=== PATIENT | female | born 1950 | race Caucasian/White ===

== ENCOUNTER → 2017-10-11 | Outpatient (CLI) | payer MEDICARE, OTHER ==
--- NOTE | 2017-10-11 08:57 | RADIOLOGY REPORT (SQ) ---
EXAM DESCRIPTION: MRI LUMBAR SPINE WITHOUT COMPLETED DATE/TIME: 10/11/2017 8:35 am REASON FOR STUDY: DEGENERATIVE DISC DISEASE (M51.37) M51.37 OTHER INTERVERTEBRAL DISC DEGENERATION, LUMBOSACRAL R COMPARISON: None. TECHNIQUE: Sagittal and Axial imaging includes T1, T2, STIR and gradient echo sequences. Coronal T2/ HASTE imaging. LIMITATIONS: None. FINDINGS: VISUALIZED UPPER ABDOMEN: Limited evaluation. No acute or suspicious findings suggested. SEGMENTATION: No transitional anatomy. The lowest well-developed disc space is labeled L5-S1. ALIGNMENT: Anatomic. VERTEBRAE: Just under 40% height loss at the L1 level. There is upper endplate fracture line with as sociated marrow edema. Minimal retropulsion but no significant central canal narrowing at this level . Chronic appearing upper endplate depression at L5. BONE MARROW: As above. Marrow signal otherwise looks normal. DISC SIGNAL: Diminished signal and height at several levels. POSTERIOR ELEMENTS: No pars defect. Mild multilevel facet arthropathy. HARDWARE: None in the spine. CORD AND CONUS: Normal in size and signal intensity. Conus at the appropriate level. SOFT TISSUES: No aortic aneurysm seen. No bulky retroperitoneal adenopathy or mass. No paraspinal mas s or fluid. L1-L2: No significant spinal stenosis or exit foraminal stenosis. L2-L3: No significant spinal stenosis or exit foraminal stenosis. L3-L4: Mild disc bulge and mild facet overgrowth with slight central narrowing. L4-L5: Mild broad central protrusion indents the ventral thecal sac. Facet overgrowth with generally mild central canal narrowing. L5-S1: Tiny central annular fissure. Minimal protrusion. No impingement or stenosis. LOWER THORACIC: Incompletely imaged. No stenosis seen. SACRUM: Visualized upper sacrum intact. OTHER: No other significant findings. IMPRESSION: 1. Recent appearing L1 mild compression fracture as above. No significant retropulsion. 2. Spondylosis otherwise. No high-grade stenosis. TECHNICAL DOCUMENTATION: JOB ID: [id number] [employer]- All Rights Reserved Reading location - IP/workstation name: [email or web address]
== END ==
LOC: RAD 07:50
PROVIDERS: ATTEND Family Medicine
DX: M51.37 Other intervertebral disc degeneration, lumbosacral region (principal)
CPT/HCPCS: 72148

== ENCOUNTER → 2017-10-25 | Outpatient (CLI) | payer MEDICARE, OTHER ==
[~2017-10-25] MED LIST: ALBUTEROL SULFATE 0.083% NEB 2.5 MG/3 ML AMPUL NEB ONE
--- NOTE | 2017-10-25 10:44 | WOMENS IMAGING REPORT ---
EXAM DESCRIPTION: BONE DENSITY HIP/SPINE COMPLETED DATE/TIME: 10/25/2017 10:23 am REASON FOR STUDY: AGE-RELATED OSTEOPROSIS; M80.08XA M80.08XA AGE-REL OSTEOPOR W CURRENT PATH FRACTU RE, VERTEBRA( COMPARISON: None. TECHNIQUE: Dual-Energy X-ray Absorptiometry (DEXA) of the AP Spine and Hip. LIMITATIONS: None. FINDINGS: LUMBAR SPINE: The bone mineral density (BMD) measured from L1-L4 in the AP projection correlates with a T-score of -1.8, which is osteopenic as defined by the World Health Organization. HIP: The bone mineral density (BMD) measured in the left femoral neck at the hip correlates with a T-score of -2.9, which is osteoporotic as defined by the World Health Organization. IMPRESSION: 1. LUMBAR SPINE: Osteopenic 2. HIP: Osteoporotic COMMENT: The World Health Organization defines low BMD as follows: T-score: Normal: Greater than -1.0 Osteopenia: Between -1.0 and -2.5 Osteoporosis: Less than -2.5 without fractures Established osteoporosis: Less than -2.5 with fractures In general, you may wish to consider: Diagnosis Treatment Follow-up DEXA Normal BMD Prevention 2-3 years Osteopenia Prevention/Therapy 1-2 years Osteoporosis Therapy Yearly TECHNICAL DOCUMENTATION: JOB ID: [id number] [employer]- All Rights Reserved Reading location - IP/workstation name: [email or web address]
== END ==
LOC: WI 09:20
PROVIDERS: ATTEND Family Medicine
DX: M80.08XA Age-related osteoporosis with current pathological fracture, vertebra(e), initial encounter for fracture (principal)
CPT/HCPCS: 77080

== ENCOUNTER 2018-05-21 07:41 | Day surgery (SDC) | payer MEDICARE, OTHER ==
[~2018-05-21 07:41] MED LIST changes: -ALBUTEROL SULFATE 0.083% NEB 2.5 MG/3 ML AMPUL NEB ONE; +PROPOFOL INJ 200 MG/20 ML VIAL IV ONE
[2018-05-21 09:34] VITALS: BP 132/70
--- NOTE | 2018-05-21 14:52 | Operative Report ---
Operative Report DATE OF SURGERY: 05/21/18 Operative Report: The risks, benefits and alternatives of the procedure including the risk of bleeding, perforation requiring surgery are explained to the patient in detail and informed consent is obtained. Patient was taken back to the endoscopy suite and placed in the left, lateral decubital position. Timeout was called. Propofol medication is administered. Rectal examination is done which did not reveal any masses, tears or fissures. An Olympus videoscope is introduced into the patient's rectum. The scope was then carefully advanced all the way to the cecum. The cecum was identified by the usual anatomical landmarks including the ileocecal valve as well as the appendiceal office. Photodocumentation was obtained. The scope was then sequentially pulled back via the various segments of the colon including the ascending colon, hepatic flexure, transverse colon, splenic flexure, descending colon and finally into the rectosigmoid portions of the colon. Retroflexion maneuver is performed. PREOPERATIVE DIAGNOSIS: Personal history of polyp POSTOPERATIVE DIAGNOSIS: Colon polyps x2 in the hepatic flexure the removed via snare polypectomy. Diverticulosis without any evidence of diverticulitis at this point. Internal hemorrhoids OPERATION: Colonoscopy with snare polypectomy SURGEON: CONNIE HAMILTON ANESTHESIA: LMAC TISSUE REMOVED OR ALTERED: As noted above. COMPLICATIONS: None. ESTIMATED BLOOD LOSS: None. INTRAOPERATIVE FINDINGS: As noted above. PROCEDURE: Patient tolerated the procedure well. No immediate postprocedure complications are noted. Patient discharged in good condition. Discharge date 05/21/2018. Discharge diet: Regular. Discharge activity: Regular. 2-3-week follow-up to discuss findings 3-5-year surveillance colonoscopy. I will wait on pathology. Patient is instructed to call the office or proceed to the emergency room should there be any further problems or questions.
== END 2018-05-21 09:32 | disposition home or self-care (01) ==
LOC: END 07:41
PROVIDERS: ATTEND Internal Medicine Gastroenterology
DX: D12.6 Benign neoplasm of colon, unspecified (principal); K57.30 Diverticulosis of large intestine without perforation or abscess without bleeding; K64.8 Other hemorrhoids; D57.80 Other sickle-cell disorders without crisis; M19.90 Unspecified osteoarthritis, unspecified site; Z88.2 Allergy status to sulfonamides; Z88.6 Allergy status to analgesic agent; Z86.010 Personal history of colon polyps; K58.0 Irritable bowel syndrome with diarrhea; E78.5 Hyperlipidemia, unspecified; M79.7 Fibromyalgia; F17.210 Nicotine dependence, cigarettes, uncomplicated; Z79.899 Other long term (current) drug therapy; Z79.891 Long term (current) use of opiate analgesic; Z79.51 Long term (current) use of inhaled steroids
CPT/HCPCS: 45385; 88305 ×2; J2704; 811

== ENCOUNTER 2018-07-05 09:09 | Day surgery (SDC) | payer MEDICARE, OTHER ==
[2018-06-27 10:17] LABS: ABSOLUTE BASOPHILS # (AUTO) 0.1 10^3/uL (0.0-0.2); ABSOLUTE LYMPHOCYTES (AUTO) 2.2 10^3/uL (0.5-4.7); ABSOLUTE MONOCYTES (AUTO) 0.4 10^3/uL (0.1-1.4); ABSOLUTE NEUT (AUTO) 3.7 10^3/uL (1.7-8.2); BASOPHILS % (AUTO) 1.4 % (0-2); EOSINOPHILS % (AUTO) 0.5 % (0-6); HEMATOCRIT 44.7 % (36.0-47.0); HEMOGLOBIN 15.3 g/dL (12.0-15.5); LYMPHOCYTES % (AUTO) 34.3 % (13-45); MEAN CORPUSCULAR HEMOGLOBIN 32.8 pg (27.0-33.4); MEAN CORPUSCULAR HGB CONC 34.2 g/dL (32.0-36.0); MEAN CORPUSCULAR VOLUME 96 fl (80-97); MONOCYTES % (AUTO) 5.5 % (3-13); PLATELET COUNT 238 10^3/uL (150-450); RED BLOOD COUNT 4.66 10^6/uL (3.72-5.28); RED CELL DISTRIBUTION WIDTH 13.2 % (11.5-14.0); SEGMENTED NEUTROPHILS % (AUTO) 58.3 % (42-78); TOTAL CELLS COUNTED % (AUTO) 100 %; WHITE BLOOD COUNT 6.4 10^3/uL (4.0-10.5)
--- NOTE | 2018-06-27 10:20 | RADIOLOGY REPORT (SQ) ---
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 NUMBER OF VIEWS: Two view. TECHNIQUE: Frontal and lateral radiographic views of the chest acquired. LIMITATIONS: None. FINDINGS: LUNGS AND PLEURA: No opacities, masses or pneumothorax. No pleural effusion. Attenuated bl ood vessels and flattened colleen-diaphragms. MEDIASTINUM AND HILAR STRUCTURES: No masses. No contour abnormalities. HEART AND VASCULAR STRUCTURES: Heart normal in size and contour. No evidence for failure. BONES: No acute findings. HARDWARE: None in the chest. OTHER: No other significant finding. IMPRESSION: COPD. NO ACUTE RADIOGRAPHIC FINDING IN THE CHEST. TECHNICAL DOCUMENTATION: JOB ID: [id number] [employer]- All Rights Reserved Reading location - IP/workstation name: [email or web address]
[2018-06-27 10:35] LABS: ANION GAP 7 (5-19); BLOOD UREA NITROGEN 21 mg/dL (7-20); CALCIUM 9.4 mg/dL (8.4-10.2); CARBON DIOXIDE 29 mmol/L (22-30); CHLORIDE 103 mmol/L (98-107); GLUCOSE 91 mg/dL (75-110); POTASSIUM 5.2 mmol/L (3.6-5.0)
--- NOTE | 2018-06-27 17:56 | EKG REPORT ---
SEVERITY:- OTHERWISE NORMAL ECG - SINUS RHYTHM BORDERLINE LEFT AXIS DEVIATION LOW VOLTAGE IN FRONTAL LEADS : Confirmed by: Rj Hernandez 27-Jun-2018 17:55:13
[~2018-07-05 09:09] MED LIST changes: +LACTATED RINGERS 1000 ML IV PRN; +LIDOCAINE 0.5% INJ-PF (5 MG/ML) 50 ML SDV SUBCUT PRN; -PROPOFOL INJ 200 MG/20 ML VIAL IV ONE
[2018-07-05] MEDS ORDERED: MIDAZOLAM 2 MG/2 ML INJ ONE ×2 (10:56→12:32)
[2018-07-05] MEDS ORDERED: FENTANYL CITRATE INJ/PF 100 MCG/2 ML AMPUL ONE (12:32)
[2018-07-05] MEDS ORDERED: PROPOFOL INJ 200 MG/20 ML VIAL IV ONE (12:33)
[2018-07-05] MEDS ORDERED: MEPERIDINE HCL/PF INJ 25 MG/1 ML DISP.SYRIN IV PRN (12:55)
[2018-07-05] MEDS ORDERED: PROMETHAZINE HCL INJ 25 MG/1 ML VIAL IV PRN (12:55)
[2018-07-05] MEDS ORDERED: FENTANYL CITRATE INJ/PF 100 MCG/2 ML AMPUL IV PRN ×3 (12:55)
[2018-07-05] MEDS ORDERED: ONDANSETRON HCL INJ/PF 4 MG/2 ML SDV IV PRN (12:55)
[2018-07-05] MEDS ORDERED: DIPHENHYDRAMINE HCL 50 MG/ML VIAL IV PRN (12:55)
[2018-07-05] MEDS: FENTANYL CITRATE INJ/PF 100 MCG/2 ML AMPUL ONE ×2 (13:15→13:20)
[2018-07-05] MEDS ORDERED: KETOROLAC TROMETHAMINE INJ/PF 30 MG/1 ML SDV ONE (13:30)
--- NOTE | 2018-07-05 13:36 | Discharge Summary ---
Discharge Summary (SDC) - Discharge Final Diagnosis: bleeding internal hemorrhoids Date of Surgery: 07/05/18 Discharge Date: 07/05/18 Condition: Stable Treatment or Instructions: d/c home. diet as tolerated. Activity: nonstrenuous. F/u 3 weeks. Fiber supplement BID. 5% lidocaine to rectum TID. Sitz baths in warm, soapy water BID and after BM's. Referrals: GONZALO CARMONA MD [Primary Care Provider] - Discharge Diet: As Tolerated Respiratory Treatments at Home: Deep Breathing/Coughing, Incentive Spirometer Discharge Activity: Balance Activity w/Rest Home Care Assistance: None Needed Report the Following to Your Physician Immediately: Shortness of Breath, Nausea, Vomiting, Increase in Pain, Fever over 101 Degrees, Unusual Bleeding, Redness, Swelling, Warmth, Increased Soreness
[2018-07-05] MEDS ORDERED: LIDOCAINE 5% OINTMENT 35.44 GM TP SCH (14:00)
[2018-07-05 15:33] VITALS: BP 154/99
[2018-07-06] MEDS ORDERED: PROPOFOL INJ 200 MG/20 ML VIAL IV ONE (06:52)
--- NOTE | 2018-07-06 09:50 | Operative Report ---
Nonrecallable Operative Report DATE OF SURGERY: 07/05/18 PREOPERATIVE DIAGNOSIS: Bleeding internal hemorrhoids POSTOPERATIVE DIAGNOSIS: same OPERATION: Rubber band ligation of internal hemorrhoids x4 SURGEON: MARISOL CASIANO [employer] APPRENTICE: MORELIA ARCEO ANESTHESIA: LMAC TISSUE REMOVED OR ALTERED: none COMPLICATIONS: none apparent ESTIMATED BLOOD LOSS: minimal PROCEDURE: Procedure in detail: After informed consent was obtained, the patient was brought to the operating room and laid in the left lateral decubitus position. The anoscope was inserted into the rectum. Enlarged internal hemorrhoids were found in the right anterior, right posterior, and left lateral columns. Rubber bands were placed around the hemorrhoids inside the rectum. 2 rubber bands were placed in the left lateral position. 4 rubber bands were placed in total. After this was completed, the endoscope was removed, and the procedure was concluded. All sponge, instrument, needle counts were correct x2. Condition: Stable. Morelia Arceo PA-C was scrubbed and present the entirety of the procedure. She assisted with all portions of procedure including retraction, deployment of the rubber bands, placement of the dressing.
== END 2018-07-05 15:20 | disposition home or self-care (01) ==
LOC: OROUT 09:09
PROVIDERS: ATTEND Surgery
DX: K64.8 Other hemorrhoids (principal); K58.9 Irritable bowel syndrome, unspecified; M79.7 Fibromyalgia; J44.9 Chronic obstructive pulmonary disease, unspecified; E78.5 Hyperlipidemia, unspecified; F17.210 Nicotine dependence, cigarettes, uncomplicated; Z79.891 Long term (current) use of opiate analgesic; Z79.899 Other long term (current) drug therapy; Z88.2 Allergy status to sulfonamides; Z79.51 Long term (current) use of inhaled steroids
CPT/HCPCS: 93005; 36415 ×2; 84132; 85025; 80048; 71046; 93010; 94640; 46221; J2250; J3010; J3490; J1885; J2704; A9270; 902

== ENCOUNTER 2019-07-29 04:06 | Inpatient (IN) | payer MEDICARE ==
--- NOTE | 2019-07-29 04:12 | ER Document Report ---
ED Hip Pain/Injury - General Chief Complaint: Hip Pain Stated Complaint: INNER THIGH PAIN Time Seen by Provider: 07/29/19 04:11 Primary Care Provider: GONZALO CARMONA MD [Primary Care Provider] - Follow up as needed Notes: CHIEF COMPLAINT: Right hip pain status post fall HPI: 69-year-old female with history of fibromyalgia presenting for evaluation of right hip pain status post fall. Patient tripped and landed on the right hip. Denies hitting her head. States that she was not able to get up or weight-bear afterwards, EMS reports they did give 100 mcg fentanyl for pain. Patient denies knee pain or ankle pain. She states she cannot fully straighten her leg secondary to the discomfort. ROS: See HPI - all other systems were reviewed and are otherwise negative Constitutional: no fever Eyes: no drainage, no blurred vision ENT: no runny nose, no sore throat Cardiovascular: no chest pain Resp: no SOB, no cough GI: no vomiting, no diarrhea, no abdominal pain : no dysuria Integumentary: no rash Allergy: no hives Musculoskeletal: + extremity pain or swelling Neurological: no numbness/tingling MEDICATIONS: I agree with the patient medications as charted by the RN. ALLERGIES: I agree with the allergies as charted by the RN. PAST MEDICAL HISTORY/PAST SURGICAL HISTORY: Reviewed and agree as charted by RN. SOCIAL HISTORY: Reviewed and agree as charted by RN. FAMILY HISTORY: No significant familial comorbid conditions directly related to patient complaint EXAM: Reviewed vital signs as charted by RN. CONSTITUTIONAL: Alert and oriented and responds appropriately to questions. Well-appearing; well-nourished, mild acute distress secondary to pain HEAD: Normocephalic; atraumatic EYES: PERRL; Conjunctivae clear, sclerae non-icteric ENT: normal nose; no rhinorrhea; moist mucous membranes; pharynx without lesions noted, no uvula edema or deviation, no tonsillar hypertrophy, phonation normal NECK: Supple without meningismus; non-tender; no cervical lymphadenopathy, no masses CARD: RRR; no murmurs, no clicks, no rubs, no gallops; symmetric distal pulses RESP: Normal chest excursion without splinting or tachypnea; breath sounds clear and equal bilaterally; no wheezes, no rhonchi, no rales, pulse oximetry 97% on room air not hypoxic ABD/GI: Normal bowel sounds; non-distended; soft, non-tender, no rebound, no guarding; no palpable organomegaly or masses. BACK: The back appears normal and is non-tender to palpation, there is no CVA tenderness EXT: Patient is unable to straighten the right leg at the hip secondary to complaints of pain. She has moderate tenderness around the right hip girdle on palpation. No discomfort to the distal femur, knee, right lower extremity. Sensation is intact in the distal right lower extremity to touch with capillary refill less than 3 seconds. Dorsalis pedis and posterior tibial pulses are present in the right foot and ankle. SKIN: Normal color for age and race; warm; dry; good turgor; no acute lesions noted NEURO: Motor and sensory function intact PSYCH: The patient's mood and manner are appropriate. Grooming and personal hygiene are appropriate. MDM: 69-year-old female with a mechanical fall with probable right hip fracture will obtain x-ray TRAVEL OUTSIDE OF THE [place] IN LAST 30 DAYS: No - Related Data Allergies/Adverse Reactions: Sulfa (Sulfonamide Antibiotics) Allergy (Severe, Verified 06/27/18 09:08) Anaphylaxis aspirin Adverse Reaction (Severe, Verified 06/27/18 09:08) STOMACH UPSET Past Medical History - Social History Smoking Status: Unknown if Ever Smoked Family History: Reviewed & Not Pertinent - Past Medical History Cardiac Medical History: Denies: Hx Coronary Artery Disease, Hx Heart Attack, Hx Hypertension Pulmonary Medical History: Reports: Hx Asthma, Hx Bronchitis, Hx COPD, Hx Pneumonia Neurological Medical History: Denies: Hx Cerebrovascular Accident, Hx Seizures Musculoskeletal Medical History: Denies Hx Arthritis - Immunizations Hx Diphtheria, Pertussis, Tetanus Vaccination: Yes Physical Exam - Vital signs Vitals: Resp Pulse Ox 16 91 L 07/29/19 04:11 07/29/19 04:11 Course - Re-evaluation Re-evalutation: 07/29/19 04:58 Patient appears to have a femoral neck fracture on my review of her x-ray. Awaiting the official radiology review, will discuss with orthopedics for management 07/29/19 06:01 Patient with a right femoral neck fracture by radiologist, labs do not show acute emergent abnormalities, have paged Dr. Garnica orthopedics 07/29/19 06:[address] Garnica, Orthopedics. Case was discussed, they will admit to their service - Vital Signs Vital signs: Temp Pulse Resp BP Pulse Ox 15 147/73 H 94 07/29/19 05:01 07/29/19 05:01 07/29/19 05:01 - Laboratory Result Diagrams: 07/29/19 04:50 07/29/19 04:50 Laboratory results interpreted by me: 07/29/19 07/29/19 04:50 04:50 WBC 12.0 H Lymph % (Auto) 10.0 L Absolute Neuts (auto) 10.2 H Seg Neutrophils % 84.9 H Carbon Dioxide 31 H Est GFR (MDRD) Non-Af 57 L Discharge - Discharge Clinical Impression: Fall Qualifiers: Encounter type: initial encounter Qualified Code(s): W19.XXXA - Unspecified fall, initial encounter Femoral neck fracture Qualifiers: Encounter type: initial encounter Fracture type: closed Laterality: right Qualified Code(s): S72.001A - Fracture of unspecified part of neck of right femur, initial encounter for closed fracture Condition: Stable Disposition: ADMITTED INPATIENT Admitting Provider: Dr. Garnica, Orthopedics Unit Admitted: Surgical Floor Referrals: GONZALO CARMONA MD [Primary Care Provider] - Follow up as needed
[2019-07-29] MEDS ORDERED: FENTANYL CITRATE INJ/PF 100 MCG/2 ML AMPUL IV ONE (04:49)
[2019-07-29 05:25] LABS: ABSOLUTE LYMPHOCYTES (AUTO) 1.2 10^3/uL (0.5-4.7); ABSOLUTE MONOCYTES (AUTO) 0.5 10^3/uL (0.1-1.4); ABSOLUTE NEUT (AUTO) 10.2 10^3/uL (1.7-8.2); BASOPHILS % (AUTO) 0.4 % (0-2); EOSINOPHILS % (AUTO) 0.4 % (0-6); HEMATOCRIT 43.2 % (36.0-47.0); HEMOGLOBIN 14.5 g/dL (12.0-15.5); MEAN CORPUSCULAR HEMOGLOBIN 32.6 pg (27.0-33.4); MEAN CORPUSCULAR HGB CONC 33.6 g/dL (32.0-36.0); MEAN CORPUSCULAR VOLUME 97 fl (80-97); MONOCYTES % (AUTO) 4.3 % (3-13); PLATELET COUNT 257 10^3/uL (150-450); RED BLOOD COUNT 4.46 10^6/uL (3.72-5.28); RED CELL DISTRIBUTION WIDTH 13.6 % (11.5-14.0); SEGMENTED NEUTROPHILS % (AUTO) 84.9 % (42-78); TOTAL CELLS COUNTED % (AUTO) 100 %
--- NOTE | 2019-07-29 05:26 | RADIOLOGY REPORT (SQ) ---
EXAM: XR Right Hip With Pelvis When Performed, 2 Views EXAM DATE/TIME: 07/29/2019 4:43 AM CLINICAL HISTORY: The patient is 69 years old and is Female; fall; hip right pain TECHNIQUE: Two views of the right hip with pelvis when performed. COMPARISON: No relevant prior studies available. FINDINGS: BONES/JOINTS: The bilateral hip joints are well-maintained. No dislocation. There is an acute, minimally displaced fracture through the lateral aspect of the right femoral neck. No additional acute fractures visualized. SOFT TISSUES: No significant soft tissue abnormalities visualized. IMPRESSION: Acute, minimally displaced fracture through the lateral aspect of the right femoral neck.
--- NOTE | 2019-07-29 05:30 | RADIOLOGY REPORT (SQ) ---
CLINICAL HISTORY: hip fracture COMPARISON: None. TECHNIQUE: XR CHEST 2 VIEWS 07/29/2019 4:19 AM SIZE STAMPER FINDINGS: Cardiac silhouette is normal in size. Lungs are clear without consolidation, atelectasis, mass or edema. There is no pleural effusion. There is no pneumothorax. There are no acute osseous findings. IMPRESSION: Clear lungs.
[2019-07-29 05:34] LABS: INTERNATIONAL RATION (INR) 0.87; PROTHROMBIN TIME 11.9 SEC (11.4-15.4)
[2019-07-29 05:44] LABS: ANION GAP 5 (5-19); BLOOD UREA NITROGEN 20 mg/dL (7-20); CALCIUM 8.9 mg/dL (8.4-10.2); CARBON DIOXIDE 31 mmol/L (22-30); CHLORIDE 101 mmol/L (98-107); GLUCOSE 105 mg/dL (75-110); POTASSIUM 4.2 mmol/L (3.6-5.0)
[2019-07-29 05:59] LABS: APPEARANCE,URINE CLEAR; BILIRUBIN,URINE NEGATIVE (NEGATIVE); COLOR,URINE YELLOW; GLUCOSE, URINE NEGATIVE (NEGATIVE); KETONES,URINE NEGATIVE (NEGATIVE); LEUKOCYTE ESTERASE,URINE NEGATIVE (NEGATIVE); NITRITE,URINE NEGATIVE (NEGATIVE); PROTEIN,URINE NEGATIVE (NEGATIVE); URINE SPECIFIC GRAVITY 1.016; UROBILINOGEN,URINE NEGATIVE mg/dL (<2.0)
--- NOTE | 2019-07-29 06:06 | EKG REPORT ---
SEVERITY:- ABNORMAL ECG - SINUS RHYTHM BORDERLINE LEFT AXIS DEVIATION LOW VOLTAGE EKG : Confirmed by: Yakov Harvey MD 29-Jul-2019 06:05:21
[2019-07-29] MEDS ORDERED: NORMAL SALINE 1000 ML 1,000 ML IV ONE (06:18)
--- NOTE | 2019-07-29 07:05 | PDOC H&P ---
History of Present Illness Admission Date/PCP: 07/29/19 06:29 GONZALO CARMONA MD History of Present Illness: MICHELE PIERCE is a 69 year old female 69-year-old white female recently relocated from [facility] and a past medical history significant for osteoporosis who fell at home earlier today and sustained a right hip injury. She was unable to weight-bear. She is brought to the emergency room by EMS. In the emergency room x-rays indicated the presence of a displaced right femoral neck fracture. Orthopedics is consulted for fracture management. Past Medical History Cardiac Medical History: Denies: Coronary Artery Disease, Myocardial Infarction, Hypertension Pulmonary Medical History: Reports: Asthma, Bronchitis, Chronic Obstructive Pulmonary Disease (COPD), Pneumonia Neurological Medical History: Denies: Seizures Musculoskeltal Medical History: Denies: Arthritis Hematology: Denies: Anemia Past Surgical History Past Surgical History: Reports: None Social History Information Source: Patient, [facility] Records Smoking Status: Unknown if Ever Smoked Family History Family History: Reviewed & Not Pertinent Parental Family History Reviewed: No Children Family History Reviewed: No Sibling(s) Family History Reviewed.: No Medication/Allergy Home Medications: Albuterol Sulfate [Ventolin Hfa 8 gm Mdi (1 Mdi/ER Disp)] 2 puff IH ASDIR PRN 05/16/18 Cyclobenzaprine HCl [Flexeril 10 mg Tablet] 10 mg PO QHS 05/16/18 Gabapentin 600 mg PO TID 05/16/18 Nitroglycerin 0.4 mg SL ASDIR PRN 05/16/18 Tramadol HCl [Ultram] 50 mg PO TID 05/16/18 Fiber [Fiber Off] 1 each PO QID 06/27/18 Allergies/Adverse Reactions: Sulfa (Sulfonamide Antibiotics) Allergy (Severe, Verified 06/27/18 09:08) Anaphylaxis aspirin Adverse Reaction (Severe, Verified 06/27/18 09:08) STOMACH UPSET Review of Systems All systems: as per PMH Physical Exam Vital Signs: Temp Pulse Resp BP Pulse Ox 15 147/73 H 94 07/29/19 05:01 07/29/19 05:01 07/29/19 05:01 Intake & Output 07/27/19 07/28/19 07/29/19 06:59 06:59 06:59 Weight 63.9 kg Physical Exam: Moderately built middle-aged white female lying on ER gurney. in a chair next to her. Patient's in significant distress at this point. General appearance: PRESENT: severe distress, well-developed, well-nourished Head exam: PRESENT: normocephalic Respiratory exam: PRESENT: unlabored Cardiovascular exam: PRESENT: RRR Pulses: PRESENT: +1 pedal pulses bilateral Vascular exam: PRESENT: normal capillary refill GI/Abdominal exam: PRESENT: soft Rectal exam: PRESENT: deferred Extremities exam: PRESENT: other - Right lower extremity is actually rotated and shortened. Distally there is brisk capillary refill and the patient is able to flex and extend her great toe. Neurological exam: PRESENT: alert, awake, oriented to person, oriented to place, oriented to time, oriented to situation. ABSENT: motor sensory deficit Psychiatric exam: PRESENT: appropriate affect, normal mood. ABSENT: homicidal ideation, suicidal ideation Skin exam: PRESENT: dry, intact, warm. ABSENT: cyanosis, rash Results Laboratory Results: 07/29/19 04:50 07/29/19 04:50 07/29/19 07/29/19 07/29/19 04:50 04:50 05:35 WBC 12.0 H RBC 4.46 Hgb 14.5 Hct 43.2 MCV 97 MCH 32.6 MCHC 33.6 RDW 13.6 Plt Count 257 Seg Neutrophils % 84.9 H Sodium 137.4 Potassium 4.2 Chloride 101 Carbon Dioxide 31 H Anion Gap 5 BUN 20 Creatinine 0.96 Est GFR ( Amer) > 60 Glucose 105 Calcium 8.9 Urine Color YELLOW Urine Appearance CLEAR Urine pH 7.0 Ur Specific [place] 1.016 Urine Protein NEGATIVE Urine Glucose (UA) NEGATIVE Urine Ketones NEGATIVE Urine Blood NEGATIVE Urine Nitrite NEGATIVE Ur Leukocyte Esterase NEGATIVE Urine WBC (Auto) 1 Urine RBC (Auto) 15 Impressions: Hip/Pelvis X-Ray 07/29/19 00:00 IMPRESSION: Acute, minimally displaced fracture through the lateral aspect of the right femoral neck. Chest X-Ray 07/29/19 04:19 IMPRESSION: Clear lungs. Status: Imported from PACS Assessment & Plan - Diagnosis (1) Femoral neck fracture Qualifiers: Encounter type: initial encounter Fracture type: closed Laterality: right Qualified Code(s): S72.001A - Fracture of unspecified part of neck of right femur, initial encounter for closed fracture Is this a current diagnosis for this admission?: Yes Plan: Plan for right hip arthroplasty pending anesthesia clearance (2) Osteoporosis Is this a current diagnosis for this admission?: Yes Plan: Was documented with osteoporosis on a DEXA scan in 2018. She states that she was unable to tolerate osteoporosis medication (? bisphosphonate) but has been taking calcium vitamin D in the interim. Plan will be to to address her osteoporosis once we have dealt with the hip fracture. - Time Time Spent: 50 to 70 Minutes Anticipated discharge: Home with Homehealth Within: within 72 hours
[2019-07-29] MEDS ORDERED: RINGERS SOLUTION,LACTATED 1,000 ML IV PRN ×2 (08:43→17:23)
[2019-07-29] MEDS ORDERED: VANCOMYCIN HCL 1,000 MG in DEXTROSE 5%-WATER 250 ML IV PRN (08:44)
[2019-07-29] MEDS ORDERED: ONDANSETRON 4 MG TAB.RAPDIS PO PRN ×2 (08:44→17:23)
[2019-07-29] MEDS ORDERED: TRANEXAMIC ACID INJ/PF 1,000 MG/10 ML SDV IV PRN (08:45)
[2019-07-29] MEDS: MORPHINE SULFATE 10 MG/ML INJ IV PRN ×3 (09:35→14:17)
[2019-07-29] MEDS ORDERED: PROPOFOL INJ 200 MG/20 ML VIAL IV ONE (15:23)
[2019-07-29] MEDS ORDERED: MIDAZOLAM 2 MG/2 ML INJ ONE (15:23)
[2019-07-29] MEDS ORDERED: FENTANYL CITRATE INJ/PF 100 MCG/2 ML AMPUL ONE (15:23)
[2019-07-29] MEDS ORDERED: BUPIVACAINE INJ/PF LIPOSOME/PF 266 MG/20 ML SDV ONE (15:28)
[2019-07-29] MEDS ORDERED: ALBUTEROL SULFATE 0.083% NEB 2.5 MG/3 ML AMPUL NEB ONE (15:44)
[2019-07-29] MEDS ORDERED: TRANEXAMIC ACID INJ/PF 1,000 MG/10 ML SDV ONE (15:46)
[2019-07-29] MEDS ORDERED: CEFAZOLIN INJ 1 GM VIAL ONE (16:36)
[2019-07-29] MEDS ORDERED: PROMETHAZINE HCL INJ 25 MG/1 ML VIAL IV PRN ×2 (16:40)
[2019-07-29] MEDS ORDERED: DIPHENHYDRAMINE HCL 50 MG/ML VIAL IV PRN ×2 (16:40→17:23)
[2019-07-29] MEDS ORDERED: ONDANSETRON HCL INJ/PF 4 MG/2 ML SDV IV PRN ×2 (16:40→17:24)
[2019-07-29] MEDS ORDERED: OXYCODONE-ACETAMINOPHEN 5-325 MG TABLET PO PRN ×2 (16:40)
[2019-07-29] MEDS ORDERED: MEPERIDINE HCL/PF INJ 25 MG/1 ML DISP.SYRIN IV PRN (16:40)
[2019-07-29] MEDS ORDERED: FENTANYL CITRATE INJ/PF 100 MCG/2 ML AMPUL IV PRN ×3 (16:40)
[2019-07-29] MEDS ORDERED: MORPHINE SULFATE 10 MG/ML INJ IV PRN (17:23)
[2019-07-29] MEDS ORDERED: ALBUTEROL SULFATE HFA (90 MCG/PUFF) 8 GM MDI (1 MDI/ER DISP) IH PRN (17:23)
--- NOTE | 2019-07-29 17:23 | Operative Report ---
Operative Report DATE OF SURGERY: 07/29/19 PREOPERATIVE DIAGNOSIS: Right femoral neck fracture OPERATION: Right hip arthroplasty SURGEON: SAHARA FERRARA ANESTHESIA: Spinal TISSUE REMOVED OR ALTERED: Femoral head to pathology ESTIMATED BLOOD LOSS: 75 PROCEDURE: Implants used: Femur: [place] Accolade 2 stem, size 4 Acetabular shell: 52 mm hemispherical shell Liner: 86 mm flat cross-link polyethylene liner Head: 36 mm chrome cobalt head +5 neck The patient is placed in a left lateral decubitus position on the operating table. The right lower extremity and hindquarter is prepped and draped in a sterile fashion. A curvilinear incision was made over the greater trochanter a posterior approach the hip was taken. the femoral neck transected using an oscillating saw and the femoral head is removed using a corkscrew.. Attention was next turned to the acetabulum. Soft tissues cleared off the acetabulum using electrocautery. The acetabulum was then prepared using a series of hemispherical reamers until a 52 millimeters reamer is seated. Subsequently a 52 millimeters [place] titanium hemispherical shell is impacted into position and secured with one screw. A standard flat 36 millimeters cross- link liner is impacted into the shell. Attention was next turned to the femur. Access is gained to the femoral canal using a box osteotome to the piriformis fo ssa. The femur is then prepared using a series of broaches until a number 4 broach is seated. A trial reduction was now performed using a 36 millimeters head with +5 neck. Preoperative leg length was recreated and is excellent anterior posterior stability. A decision was made to proceed with the above construct. All trial implants were removed. The wound is irrigated with pulsed lavage. A number 4 stem is impacted into the femoral canal. A trial reduction was again performed with a 36 mm head and a +5 neck. Findings as previously. The hip was dislocated one last time and the final chrome-cobalt head is impacted onto the trunnion. The hip was reduced. Wound is copiously irrigated with pulsed lavage. Sent closed in layers using interrupted Vicryl followed by jessenia. A sterile dressing is applied and the patient's returned to recovery room in satisfactory patient.
[2019-07-29] MEDS ORDERED: MAG HYDROX/AL HYDROX/SIMETH SUSP 30 ML UDCUP PO PRN (17:24)
[2019-07-29] MEDS ORDERED: ZOLPIDEM TARTRATE 5 MG TABLET PO PRN (17:24)
[2019-07-29] MEDS: SENNOSIDES/DOCUSATE 8.6-50 MG 1 EACH TABLET PO SCH (18:48)
[2019-07-29] MEDS ORDERED: TRANEXAMIC ACID INJ/PF 1,000 MG/10 ML SDV IV ONE (19:00)
[2019-07-29] MEDS ORDERED: ALBUTEROL SULFATE HFA (90 MCG/PUFF) 200 PUFF/8.5 GM MDI IH PRN (20:07)
[2019-07-29] MEDS ORDERED: IPRATROPIUM/ALBUTEROL 0.5-2.5 MG/3 ML AMPUL NEB ONE (20:11)
[2019-07-29] MEDS: GABAPENTIN 300 MG CAPSULE PO SCH (21:05)
[2019-07-29] MEDS: IBUPROFEN 800 MG in NORMAL SALINE 250 ML IV SCH (21:05)
[2019-07-29] MEDS: OXYCODONE HCL SR 10 MG TABLET PO SCH (21:06)
[2019-07-29] MEDS ORDERED: ACETAMINOPHEN 1,000 MG/100 ML RTUPB IV ONE (23:23)
[2019-07-30] MEDS ORDERED: ACETAMINOPHEN 1,000 MG/100 ML RTUPB IV ONE (05:15)
[2019-07-30] MEDS ORDERED: VANCOMYCIN HCL 1,000 MG in DEXTROSE 5%-WATER 250 ML IV ONE (05:23)
[2019-07-30] MEDS: GABAPENTIN 300 MG CAPSULE PO SCH ×3 (05:59→21:45)
[2019-07-30] MEDS: PANTOPRAZOLE SODIUM 40 MG TABLET.DR PO SCH (05:59)
[2019-07-30] MEDS: IBUPROFEN 800 MG in NORMAL SALINE 250 ML IV SCH ×4 (05:59→22:05)
[2019-07-30] MEDS: OXYCODONE HCL IR 5 MG TABLET PO PRN ×2 (06:03→13:58)
[2019-07-30 06:06] LABS: HEMATOCRIT 38.9 % (36.0-47.0); HEMOGLOBIN 13.1 g/dL (12.0-15.5); MEAN CORPUSCULAR HEMOGLOBIN 32.8 pg (27.0-33.4); MEAN CORPUSCULAR HGB CONC 33.8 g/dL (32.0-36.0); MEAN CORPUSCULAR VOLUME 97 fl (80-97); PLATELET COUNT 170 10^3/uL (150-450); RED BLOOD COUNT 4.01 10^6/uL (3.72-5.28); RED CELL DISTRIBUTION WIDTH 13.5 % (11.5-14.0)
[2019-07-30 06:39] LABS: BLOOD UREA NITROGEN 13 mg/dL (7-20); CALCIUM 8.4 mg/dL (8.4-10.2); GLUCOSE 118 mg/dL (75-110); POTASSIUM 4.8 mmol/L (3.6-5.0)
[2019-07-30 06:45] LABS: CARBON DIOXIDE 30 mmol/L (22-30); CHLORIDE 103 mmol/L (98-107)
[2019-07-30 06:49] LABS: ANION GAP 3 (5-19)
--- NOTE | 2019-07-30 07:15 | PDOC PROGRESS REPORT ---
Subjective Progress Note for:: 07/30/19 Reason For Visit: FALL,FEMORAL NECK FRACTURE 69-year-old white female now postop day 1 status post right hip arthroplasty for femoral neck fracture. Patient is comfortable this morning but pain control yesterday was problematic. Patient was not seen by physical therapy yesterday because of the time of her arrival to the floor which was late Physical Exam Vital Signs: Temp Pulse Resp BP Pulse Ox 36.9 C 94 16 126/46 H 91 L 07/30/19 04:50 07/30/19 04:50 07/30/19 04:50 07/30/19 04:50 07/30/19 04:50 Intake & Output 07/29/19 07/30/19 07/31/19 06:59 06:59 06:59 Intake Total 5692 Output Total 4909 Balance 783 Weight 63.9 kg 66.1 kg Physical Exam: Patient is alert, oriented, and somewhat appropriate. Apprehension when I placed my hand on her leg without moving the leg results in bracing on the bed rails as well as a trapeze anticipation of pain. General appearance: PRESENT: no acute distress, mild distress Head exam: PRESENT: normocephalic Respiratory exam: PRESENT: unlabored Cardiovascular exam: PRESENT: RRR GI/Abdominal exam: PRESENT: soft Rectal exam: PRESENT: deferred Musculoskeletal exam: PRESENT: other - Right hip dressing clean dry and intact. Leg lengths are equal. Distal neurovascular examination is intact. Neurological exam: PRESENT: alert, awake, oriented to person, oriented to place, oriented to time, oriented to situation. ABSENT: motor sensory deficit Psychiatric exam: PRESENT: anxious Skin exam: PRESENT: dry, intact, warm. ABSENT: cyanosis, rash Results Laboratory Results: 07/30/19 05:50 07/30/19 05:50 07/30/19 07/30/19 05:50 05:50 WBC 9.0 RBC 4.01 Hgb 13.1 Hct 38.9 MCV 97 MCH 32.8 MCHC 33.8 RDW 13.5 Plt Count 170 Sodium 136.1 L Potassium 4.8 Chloride 103 Carbon Dioxide 30 Anion Gap 3 L BUN 13 Creatinine 0.86 Est GFR ( Amer) > 60 Glucose 118 H Calcium 8.4 Impressions: Hip/Pelvis X-Ray 07/29/19 00:00 IMPRESSION: Acute, minimally displaced fracture through the lateral aspect of the right femoral neck. Chest X-Ray 07/29/19 04:19 IMPRESSION: Clear lungs. Status: Imported from PACS Assessment & Plan - Diagnosis (1) Femoral neck fracture Qualifiers: Encounter type: initial encounter Fracture type: closed Laterality: right Qualified Code(s): S72.001A - Fracture of unspecified part of neck of right femur, initial encounter for closed fracture Is this a current diagnosis for this admission?: Yes Plan: Mobilize with physical therapy and a touchdown weightbearing restriction (2) Osteoporosis Is this a current diagnosis for this admission?: Yes - Time Time Spent with patient: 15-24 minutes Anticipated discharge: Home with Homehealth Within: Other
[2019-07-30] MEDS: ASPIRIN 81 MG TABLET, ENT COATED PO SCH (09:32)
[2019-07-30] MEDS: OXYCODONE HCL SR 10 MG TABLET PO SCH ×2 (09:32→21:45)
[2019-07-30] MEDS: SENNOSIDES/DOCUSATE 8.6-50 MG 1 EACH TABLET PO SCH ×3 (09:32→17:03)
[2019-07-30] MEDS: PRENATAL VITAMIN W DHA CAPSULE PO SCH (09:33)
[2019-07-30] MEDS: IPRATROPIUM/ALBUTEROL 0.5-2.5 MG/3 ML AMPUL NEB SCH ×2 (11:25→20:15)
--- NOTE | 2019-07-30 11:53 | RADIOLOGY REPORT (SQ) ---
EXAM DESCRIPTION: CHEST SINGLE VIEW COMPLETED DATE/TIME: 07/30/2019 11:27 am REASON FOR STUDY: sob COMPARISON: Chest films 07/29/2019, 06/27/2018 EXAM PARAMETERS: NUMBER OF VIEWS: One view. TECHNIQUE: Single frontal radiographic view of the chest acquired. RADIATION DOSE: NA LIMITATIONS: None. FINDINGS: LUNGS AND PLEURA: Lungs are hyperinflated and hyperlucent from obstructive disease. Question early or developing infiltrate at the right lung base. No pleural effusion or pneumothorax. MEDIASTINUM AND HILAR STRUCTURES: No masses. Contour normal. HEART AND VASCULAR STRUCTURES: Heart normal in size. Normal vasculature. BONES: No acute findings. HARDWARE: Multiple surgical clips in the left upper quadrant. OTHER: No other significant finding. IMPRESSION: Obstructive lung disease Question early or developing infiltrate at the right lung base TECHNICAL DOCUMENTATION: JOB ID: [id number] 2010 [employer]- All Rights Reserved Reading location - IP/workstation name: [email or web address]
[2019-07-30 13:23] LABS: ARTERIAL BLOOD BASE EXCESS 0.4 mmol/L; ARTERIAL BLOOD H2CO3 1.18 mmol/L (1.05-1.35); ARTERIAL BLOOD HCO3 24.8 mmol/L (20-24); ARTERIAL BLOOD O2 SATURATION 77.1 % (94-98); ARTERIAL BLOOD PCO2 39.3 mmHg (35-45); ARTERIAL BLOOD PH 7.42 (7.35-7.45)
[2019-07-30 13:42] LABS: ARTERIAL BLOOD FIO2 ROOM AIR; ARTERIAL BLOOD PO2 40.8 mmHg (80-100)
--- NOTE | 2019-07-30 16:08 | PDOC CONSULTATION ---
Consultation Consult Date: 07/30/19 Attending physician:: SAHARA FERRARA Provider Consulted: NÉSTOR GARCIA Consult reason:: Hypoxemia History of Present Illness Admission Date/PCP: 07/29/19 06:29 GONZALO CARMONA MD History of Present Illness: MICHELE PIERCE is a 69 year old female was admitted by the orthopedic service for a femoral neck fracture. She has a history of COPD but says that she does not use anything but and as needed albuterol inhaler at home. She had surgery yesterday and today was getting out of bed with PT for the first time she got a little dizzy. Her vitals were checked and her pulse oximetry showed that her oxygen levels were low. She had oxygen put on the head of bed at about 6 L to get her in the mid 90s. Patient says she felt fine felt like she recovered completely. We took off her oxygen and waited a while and then checked her bloo d gas and that showed that her PO2 on room air was low and her saturation on her blood gas was only 77%. Patient was asymptomatic with this. She was not complaining of any chest pain or shortness of breath. She has evidence of COPD with hyperinflated lungs, flattened diaphragms, and basilar scarring on chest x- ray. She has had foot pumps on and has not been on any anticoagulation. Past Medical History Cardiac Medical History: Denies: Coronary Artery Disease, Myocardial Infarction, Hypertension Pulmonary Medical History: Reports: Asthma, Bronchitis, Chronic Obstructive Pulmonary Disease (COPD), Pneumonia Neurological Medical History: Denies: Seizures Musculoskeltal Medical History: Denies: Arthritis Hematology: Denies: Anemia Past Surgical History Past Surgical History: Reports: None Social History Smoking Status: Unknown if Ever Smoked - Advance Directive Resuscitation Status: Full Code Family History Family History: Reviewed & Not Pertinent Parental Family History Reviewed: Yes Children Family History Reviewed: Yes Sibling(s) Family History Reviewed.: Yes Medication/Allergy Home Medications: Albuterol Sulfate [Ventolin Hfa 8 gm Mdi (1 Mdi/ER Disp)] 2 puff IH Q6HP PRN 05/16/18 Tramadol HCl [Ultram] 50 mg PO Q8HP PRN MDD 300 MG (1-2 TAB PER DOSE) 05/16/18 Cyclobenzaprine HCl [Flexeril 10 mg Tablet] 10 mg PO TIDP PRN 07/29/19 Gabapentin [Neurontin] 600 mg PO Q8 07/29/19 Allergies/Adverse Reactions: Sulfa (Sulfonamide Antibiotics) Allergy (Severe, Verified 06/27/18 09:08) Anaphylaxis aspirin Adverse Reaction (Severe, Verified 06/27/18 09:08) STOMACH UPSET Review of Systems All systems: reviewed and no additional remarkable complaints except as stated - All systems were reviewed and were negative except as noted in the HPI Physical Exam Vital Signs: Temp Pulse Resp BP Pulse Ox 98.2 F 85 20 101/49 L 86 L 07/30/19 10:56 07/30/19 11:30 07/30/19 11:30 07/30/19 10:56 07/30/19 14:54 Intake & Output 07/29/19 07/30/19 07/31/19 06:59 06:59 06:59 Intake Total 5942 380 Output Total 5234 600 Balance 708 -220 Weight 63.9 kg 66.1 kg General appearance: PRESENT: no acute distress, cooperative, disheveled Head exam: PRESENT: atraumatic, normocephalic Eye exam: PRESENT: EOMI, PERRLA. ABSENT: conjunctival injection, nystagmus, scleral icterus Ear exam: PRESENT: normal external ear exam Mouth exam: PRESENT: moist, neck supple Throat exam: ABSENT: post pharyngeal erythema Neck exam: PRESENT: full ROM. ABSENT: carotid bruit, JVD, lymphadenopathy, meningismus, tenderness, thyromegaly Respiratory exam: PRESENT: decreased breath sounds, prolonged expiratory phas, symmetrical, unlabored. ABSENT: accessory muscle use, chest wall tenderness, crackles, retraction, rhonchi, tachypnea, wheezes Cardiovascular exam: PRESENT: RRR, +S1, +S2. ABSENT: diastolic murmur, systolic murmur Pulses: PRESENT: normal carotid pulses Vascular exam: PRESENT: normal capillary refill GI/Abdominal exam: PRESENT: normal bowel sounds, soft. ABSENT: distended, guarding, rebound, tenderness Extremities exam: PRESENT: other - Clean bandage on right hip. ABSENT: clubbing, pedal edema Musculoskeletal exam: PRESENT: normal inspection. ABSENT: deformity Neurological exam: PRESENT: alert, awake, oriented to person, oriented to place, oriented to time, oriented to situation, CN II-XII grossly intact. ABSENT: motor sensory deficit Psychiatric exam: PRESENT: appropriate affect, normal mood Skin exam: PRESENT: dry, warm, other - Has a dusky overall appearance Results Laboratory Results: 07/30/19 05:50 07/30/19 05:50 07/30/19 07/30/19 07/30/19 05:50 05:50 13:05 WBC 9.0 RBC 4.01 Hgb 13.1 Hct 38.9 MCV 97 MCH 32.8 MCHC 33.8 RDW 13.5 Plt Count 170 Carbonic Acid 1.18 HCO3/H2CO3 Ratio 21:1 ABG pH 7.42 ABG pCO2 39.3 ABG pO2 40.8 L* ABG HCO3 24.8 H ABG O2 Saturation 77.1 L ABG Base Excess 0.4 FiO2 ROOM AIR Sodium 136.1 L Potassium 4.8 Chloride 103 Carbon Dioxide 30 Anion Gap 3 L BUN 13 Creatinine 0.86 Est GFR ( Amer) > 60 Glucose 118 H Calcium 8.4 Impressions: Hip/Pelvis X-Ray 07/29/19 00:00 IMPRESSION: Acute, minimally displaced fracture through the lateral aspect of the right femoral neck. Chest X-Ray 07/30/19 00:00 IMPRESSION: Obstructive lung disease Question early or developing infiltrate at the right lung base Assessment and Plan - Diagnosis (1) Hypoxemia Is this a current diagnosis for this admission?: Yes Plan: She is hypoxic but otherwise shows no signs of distress whatsoever. I suspect her underlying COPD and likely underlying pulmonary fibrosis predispose her to a typically low SPO2 at baseline. However, given the fact that she seemed to have an acute drop in SPO2, and that she has not been on anticoagulation postoperatively, I will order a CTA of the chest to rule out PE. I have also ordered incentive spirometry. In this patient I would not be terribly surprised to have a negative CTA for blood clot. (2) Femoral neck fracture Qualifiers: Encounter type: initial encounter Fracture type: closed Laterality: right Qualified Code(s): S72.001A - Fracture of unspecified part of neck of right femur, initial encounter for closed fracture Is this a current diagnosis for this admission?: Yes Plan: Per surgery - Time Time Spent with patient: 35 or more minutes
[2019-07-30] MEDS: MORPHINE SULFATE 10 MG/ML INJ IV PRN (16:58)
[2019-07-30] MEDS: ACETAMINOPHEN 325 MG TABLET PO PRN (17:01)
--- NOTE | 2019-07-30 17:43 | RADIOLOGY REPORT (SQ) ---
EXAM DESCRIPTION: CTA CHEST COMPLETED DATE/TIME: 07/30/2019 5:21 pm REASON FOR STUDY: Hypoxemia, hip fracture surgery COMPARISON: None. TECHNIQUE: CT scan of the chest performed using helical scanning technique with dynamic intravenous contrast injection. Images reviewed with lung, soft tissue and bone windows. Reconstructed coronal and sagittal MPR images reviewed. Additional 3 dimensional post-processing performed to develop Maximal Intensity Projection images (AL P). All images stored on PACS. All CT scanners at this facility use dose modulation, iterative reconstruction, and/or weight based d osing when appropriate to reduce radiation dose to as low as reasonably achievable (ALARA). [facility]: Dose Right [facility]: CareDose [facility]: Dose Right [facility]: Teradose 4D [facility]: VisiQuate CONTRAST TYPE AND DOSE: contrast/concentration: Isovue 350.00 mg/ml; Total Contrast Delivered: 52.0 ml; Total Saline Delivered: 78.0 ml Contrast bolus adequate for pulmonary arteries and aorta. RENAL FUNCTION: BUN 13 creatinine 0.86 RADIATION DOSE: CT Rad equipment meets quality standard of care and radiation dose reduction techniq ues were employed. CTDIvol: 6.6 - 14.3 mGy. DLP: 550 mGy-cm. . LIMITATIONS: None. FINDINGS: LUNGS AND PLEURA: Mild centrilobular emphysema. Marked opacification in the right lower l obe. Mild dependent atelectasis in the left lower lobe posteriorly. AORTA AND GREAT VESSELS: No aneurysm. No dissection. HEART: No pericardial effusion. Prior CABG. PULMONARY ARTERIES: No emboli visualized in the main pulmonary arteries or the segmental branches. HILAR AND MEDIASTINAL STRUCTURES: Mild left hilar adenopathy. No mediastinal mass or adenopathy. HARDWARE: None in the chest. UPPER ABDOMEN: No significant findings. Limited exam. THYROID AND OTHER SOFT TISSUES: No masses. No adenopathy. BONES: No acute or significant finding. 3D MIPS: Confirm above findings. OTHER: No other significant finding. IMPRESSION: 1. There is no pulmonary embolus. There is no aortic aneurysm or dissection. 2. Right lower lobe atelectasis. 3. Subsegmental dependent atelectasis in left lower lobe. 4. Mild left hilar adenopathy. COMMENT: Quality ID # [id number]: Final reports with documentation of one or more dose reduction techniques (e.g., Automated exposure control, adjustment of the mA and/or kV according to patient size, use of iterative reconstruction technique) TECHNICAL DOCUMENTATION: JOB ID: [id number] 2010 [employer]- All Rights Reserved Reading location - IP/workstation name: [email or web address]
[2019-07-31] MEDS: IPRATROPIUM/ALBUTEROL 0.5-2.5 MG/3 ML AMPUL NEB SCH ×4 (02:46→20:09)
[2019-07-31] MEDS: IBUPROFEN 800 MG in NORMAL SALINE 250 ML IV SCH ×2 (06:00→14:19)
[2019-07-31 06:29] LABS: HEMATOCRIT 40.1 % (36.0-47.0); HEMOGLOBIN 13.7 g/dL (12.0-15.5); MEAN CORPUSCULAR HEMOGLOBIN 32.8 pg (27.0-33.4); MEAN CORPUSCULAR HGB CONC 34.1 g/dL (32.0-36.0); MEAN CORPUSCULAR VOLUME 96 fl (80-97); PLATELET COUNT 147 10^3/uL (150-450); RED BLOOD COUNT 4.17 10^6/uL (3.72-5.28); RED CELL DISTRIBUTION WIDTH 13.4 % (11.5-14.0)
--- NOTE | 2019-07-31 06:45 | PDOC PROGRESS REPORT ---
Subjective Progress Note for:: 07/31/19 Reason For Visit: FALL,FEMORAL NECK FRACTURE 69-year-old white female now postop day 2 status post right hip arthroplasty for femoral neck fracture. Patient with low oxygen levels yesterday underwent a hospitalist consult and a CTA which was negative for PE. The patient in better spirits this morning. She is alert oriented and cooperative. Physical Exam Vital Signs: Temp Pulse Resp BP Pulse Ox 36.8 C 87 18 129/55 H 89 L 07/31/19 00:22 07/31/19 02:49 07/31/19 02:49 07/31/19 00:22 07/31/19 02:49 Intake & Output 07/29/19 07/30/19 07/31/19 06:59 06:59 06:59 Intake Total 5942 700 Output Total 5234 1100 Balance 708 -400 Weight 63.9 kg 66.1 kg 66.2 kg General appearance: PRESENT: no acute distress, mild distress Head exam: PRESENT: normocephalic Respiratory exam: PRESENT: unlabored Cardiovascular exam: PRESENT: RRR Pulses: PRESENT: +1 pedal pulses bilateral Vascular exam: PRESENT: normal capillary refill GI/Abdominal exam: PRESENT: soft Rectal exam: PRESENT: deferred Extremities exam: PRESENT: other - Right hip dressing clean dry and intact. I am able to passively roll her lower extremity internally and externally without any discomfort. Leg lengths are equal. Distal neurovascular examination is intact. Neurological exam: PRESENT: alert, awake, oriented to person, oriented to place, oriented to time, oriented to situation. ABSENT: motor sensory deficit Psychiatric exam: PRESENT: appropriate affect, normal mood. ABSENT: homicidal ideation, suicidal ideation Results Laboratory Results: 07/31/19 05:48 07/30/19 05:50 07/30/19 07/30/19 07/31/19 05:50 13:05 05:48 WBC 15.0 H RBC 4.17 Hgb 13.7 Hct 40.1 MCV 96 MCH 32.8 MCHC 34.1 RDW 13.4 Plt Count 147 L Carbonic Acid 1.18 HCO3/H2CO3 Ratio 21:1 ABG pH 7.42 ABG pCO2 39.3 ABG pO2 40.8 L* ABG HCO3 24.8 H ABG O2 Saturation 77.1 L ABG Base Excess 0.4 FiO2 ROOM AIR Sodium 136.1 L Potassium 4.8 Chloride 103 Carbon Dioxide 30 Anion Gap 3 L BUN 13 Creatinine 0.86 Est GFR ( Amer) > 60 Glucose 118 H Calcium 8.4 Impressions: Hip/Pelvis X-Ray 07/29/19 00:00 IMPRESSION: Acute, minimally displaced fracture through the lateral aspect of the right femoral neck. Chest X-Ray 07/30/19 00:00 IMPRESSION: Obstructive lung disease Question early or developing infiltrate at the right lung base Chest/Abdomen CTA 07/30/19 00:00 IMPRESSION: 1. There is no pulmonary embolus. There is no aortic aneurysm or dissection. 2. Right lower lobe atelectasis. 3. Subsegmental dependent atelectasis in left lower lobe. 4. Mild left hilar adenopathy. Status: Imported from PACS Assessment & Plan - Diagnosis (1) Femoral neck fracture Qualifiers: Encounter type: initial encounter Fracture type: closed Laterality: right Qualified Code(s): S72.001A - Fracture of unspecified part of neck of right femur, initial encounter for closed fracture Is this a current diagnosis for this admission?: Yes Plan: Mobilized with physical therapy and a touchdown weightbearing restriction. Patient's desires to return home as opposed to a long term facility. Considerable progress will need to be made with physical therapy before this can be realized (2) Osteoporosis Is this a current diagnosis for this admission?: Yes - Time Time Spent with patient: 15-24 minutes
[2019-07-31] MEDS: GABAPENTIN 300 MG CAPSULE PO SCH ×3 (07:33→22:00)
[2019-07-31] MEDS: PANTOPRAZOLE SODIUM 40 MG TABLET.DR PO SCH (07:33)
[2019-07-31] MEDS: OXYCODONE HCL IR 5 MG TABLET PO PRN ×2 (07:39→14:24)
[2019-07-31] MEDS: SENNOSIDES/DOCUSATE 8.6-50 MG 1 EACH TABLET PO SCH ×3 (10:36→17:58)
[2019-07-31] MEDS: ASPIRIN 81 MG TABLET, ENT COATED PO SCH (10:36)
[2019-07-31] MEDS: PRENATAL VITAMIN W DHA CAPSULE PO SCH (10:36)
[2019-07-31] MEDS: OXYCODONE HCL SR 10 MG TABLET PO SCH (10:37)
--- NOTE | 2019-07-31 15:09 | PDOC PROGRESS REPORT ---
Subjective Progress Note for:: 07/31/19 Subjective:: No adverse events overnight. She had a brief fever yesterday evening but has defervesced and has not had any more fever since then. No cough or shortness of breath. No chest pain. The CT of her chest yesterday was negative for PE but showed some lower lobe atelectasis bilaterally. Reason For Visit: FALL,FEMORAL NECK FRACTURE Physical Exam Vital Signs: Temp Pulse Resp BP Pulse Ox 99.2 F 90 20 111/52 L 93 07/31/19 11:50 07/31/19 13:57 07/31/19 13:57 07/31/19 11:50 07/31/19 13:57 Intake & Output 07/30/19 07/31/19 08/01/19 06:59 06:59 06:59 Intake Total 5942 1700 480 Output Total 5234 1100 200 Balance 708 600 280 Weight 66.1 kg 66.2 kg General appearance: PRESENT: no acute distress, cooperative, disheveled Respiratory exam: PRESENT: decreased breath sounds, prolonged expiratory phas, symmetrical, unlabored. ABSENT: accessory muscle use, chest wall tenderness, crackles, retraction, rhonchi, tachypnea, wheezes Cardiovascular exam: PRESENT: RRR, +S1, +S2. ABSENT: diastolic murmur, systolic murmur Pulses: PRESENT: normal carotid pulses Vascular exam: PRESENT: normal capillary refill GI/Abdominal exam: PRESENT: normal bowel sounds, soft. ABSENT: distended, guarding, rebound, tenderness Extremities exam: PRESENT: other - Clean bandage on right hip. ABSENT: clubbing, pedal edema Musculoskeletal exam: PRESENT: normal inspection. ABSENT: deformity Neurological exam: PRESENT: alert, awake, oriented to person, oriented to place, oriented to time, oriented to situation Psychiatric exam: PRESENT: appropriate affect, normal mood Skin exam: PRESENT: dry, warm, other - Has a dusky overall appearance Results Laboratory Results: 07/31/19 05:48 07/30/19 05:50 07/31/19 05:48 WBC 15.0 H RBC 4.17 Hgb 13.7 Hct 40.1 MCV 96 MCH 32.8 MCHC 34.1 RDW 13.4 Plt Count 147 L Impressions: Hip/Pelvis X-Ray 07/29/19 00:00 IMPRESSION: Acute, minimally displaced fracture through the lateral aspect of the right femoral neck. Chest X-Ray 07/30/19 00:00 IMPRESSION: Obstructive lung disease Question early or developing infiltrate at the right lung base Chest/Abdomen CTA 07/30/19 00:00 IMPRESSION: 1. There is no pulmonary embolus. There is no aortic aneurysm or dissection. 2. Right lower lobe atelectasis. 3. Subsegmental dependent atelectasis in left lower lobe. 4. Mild left hilar adenopathy. Assessment and Plan - Diagnosis (1) Hypoxemia Is this a current diagnosis for this admission?: Yes Plan: She did have fairly diffuse centrilobular emphysema with hyperinflated lungs on her chest CT. We have encouraged incentive spirometry and use of a flutter valve. We will keep a close eye on her in case the areas of atelectasis wind up turning into a breeding ground for pneumonia. She will likely have to be discharged on some oxygen because she is on 4 to 6 L and her SPO2 is in the low 90s. (2) Femoral neck fracture Qualifiers: Encounter type: initial encounter Fracture type: closed Laterality: right Qualified Code(s): S72.001A - Fracture of unspecified part of neck of right femur, initial encounter for closed fracture Is this a current diagnosis for this admission?: Yes Plan: Per surgery. She does not want to go to a detention facility given how she has performed so far I do not see how that is avoidable. - Time Time Spent with patient: 15-24 minutes
[2019-07-31] MEDS: MORPHINE SULFATE 10 MG/ML INJ IV PRN (17:56)
[2019-07-31] MEDS: ACETAMINOPHEN 325 MG TABLET PO PRN (17:56)
[2019-08-01] MEDS: IPRATROPIUM/ALBUTEROL 0.5-2.5 MG/3 ML AMPUL NEB SCH ×4 (01:27→21:11)
--- NOTE | 2019-08-01 06:48 | PDOC PROGRESS REPORT ---
Subjective Progress Note for:: 08/01/19 Reason For Visit: FALL,FEMORAL NECK FRACTURE 69-year-old white female now postop day 3 status post right hip arthroplasty for femoral neck fracture. Patient sitting up in bed today. Alert oriented, and appropriate. Physical Exam Vital Signs: Temp Pulse Resp BP Pulse Ox 36.7 C 71 18 99/46 L 90 L 07/31/19 23:35 08/01/19 01:28 08/01/19 01:28 07/31/19 23:35 08/01/19 01:28 Intake & Output 07/30/19 07/31/19 08/01/19 06:59 06:59 06:59 Intake Total 5942 1700 720 Output Total 5234 1100 200 Balance 708 600 520 Weight 66.1 kg 66.2 kg 63.8 kg General appearance: PRESENT: no acute distress, thin Respiratory exam: PRESENT: unlabored Cardiovascular exam: PRESENT: RRR Pulses: PRESENT: +1 pedal pulses bilateral Vascular exam: PRESENT: normal capillary refill GI/Abdominal exam: PRESENT: soft Rectal exam: PRESENT: deferred Extremities exam: PRESENT: other - Today I can not only internally and actually rotate the leg but flex the hip without undue pain. Right hip dressing is clean dry and intact. Leg lengths are equal. Distal neurovascular examination is intact. Results Laboratory Results: 07/31/19 05:48 07/30/19 05:50 Impressions: Hip/Pelvis X-Ray 07/29/19 00:00 IMPRESSION: Acute, minimally displaced fracture through the lateral aspect of the right femoral neck. Chest X-Ray 07/30/19 00:00 IMPRESSION: Obstructive lung disease Question early or developing infiltrate at the right lung base Chest/Abdomen CTA 07/30/19 00:00 IMPRESSION: 1. There is no pulmonary embolus. There is no aortic aneurysm or dissection. 2. Right lower lobe atelectasis. 3. Subsegmental dependent atelectasis in left lower lobe. 4. Mild left hilar adenopathy. Status: Imported from PACS Assessment & Plan - Diagnosis (1) Femoral neck fracture Qualifiers: Encounter type: initial encounter Fracture type: closed Laterality: right Qualified Code(s): S72.001A - Fracture of unspecified part of neck of right femur, initial encounter for closed fracture Is this a current diagnosis for this admission?: Yes Plan: Mobilized with physical therapy touchdown weightbearing restriction. (2) Osteoporosis Is this a current diagnosis for this admission?: Yes - Time Time Spent with patient: 15-24 minutes Anticipated discharge: Home with Homehealth - Patient remains adamant that she wishes to return home with home health services as opposed to assisted facility. Today I have laid out for her that that will entail her being able to transfer from a bed to a chair to bathroom independently. She understands the functional necessity this and will work diligently towards this as a goal.
[2019-08-01] MEDS: GABAPENTIN 300 MG CAPSULE PO SCH ×3 (06:49→21:30)
[2019-08-01] MEDS: OXYCODONE HCL IR 5 MG TABLET PO PRN ×2 (06:49→19:58)
[2019-08-01] MEDS: PANTOPRAZOLE SODIUM 40 MG TABLET.DR PO SCH (06:50)
[2019-08-01 07:20] LABS: HEMATOCRIT 33.5 % (36.0-47.0); MEAN CORPUSCULAR HEMOGLOBIN 32.7 pg (27.0-33.4); MEAN CORPUSCULAR HGB CONC 33.7 g/dL (32.0-36.0); MEAN CORPUSCULAR VOLUME 97 fl (80-97); PLATELET COUNT 143 10^3/uL (150-450); RED BLOOD COUNT 3.45 10^6/uL (3.72-5.28); RED CELL DISTRIBUTION WIDTH 13.3 % (11.5-14.0); WHITE BLOOD COUNT 10.7 10^3/uL (4.0-10.5)
[2019-08-01 07:23] LABS: HEMOGLOBIN 11.3 g/dL (12.0-15.5)
[2019-08-01] MEDS: SENNOSIDES/DOCUSATE 8.6-50 MG 1 EACH TABLET PO SCH ×2 (10:09→17:27)
[2019-08-01] MEDS: ASPIRIN 81 MG TABLET, ENT COATED PO SCH (10:09)
[2019-08-01] MEDS: MORPHINE SULFATE 10 MG/ML INJ IV PRN (10:09)
[2019-08-01] MEDS: PRENATAL VITAMIN W DHA CAPSULE PO SCH (10:09)
--- NOTE | 2019-08-01 16:36 | PDOC PROGRESS REPORT ---
Subjective Progress Note for:: 08/01/19 Subjective:: No adverse events overnight. No fevers overnight. Stable on 4 to 5 L per nasal cannula. The goal for her SPO2 should be 90 to 92%. Reason For Visit: FALL,FEMORAL NECK FRACTURE Physical Exam Vital Signs: Temp Pulse Resp BP Pulse Ox 98.1 F 90 16 142/61 H 94 08/01/19 10:52 08/01/19 14:13 08/01/19 14:13 08/01/19 10:52 08/01/19 14:13 Intake & Output 07/31/19 08/01/19 08/02/19 06:59 06:59 06:59 Intake Total 1700 1080 840 Output Total 1100 200 Balance 600 880 840 Weight 66.2 kg 63.8 kg General appearance: PRESENT: no acute distress, cooperative, obese Respiratory exam: PRESENT: clear to auscultation augustine, symmetrical, unlabored. ABSENT: accessory muscle use, chest wall tenderness, crackles, prolonged expiratory phas, retraction, rhonchi, tachypnea, wheezes Cardiovascular exam: PRESENT: RRR, +S1, +S2 Pulses: PRESENT: normal carotid pulses Vascular exam: PRESENT: normal capillary refill GI/Abdominal exam: PRESENT: normal bowel sounds, soft. ABSENT: distended, guarding, rebound, tenderness Gentrourinary exam: PRESENT: indwelling catheter - Left nephrostomy Extremities exam: ABSENT: clubbing, pedal edema Musculoskeletal exam: PRESENT: normal inspection. ABSENT: deformity Neurological exam: PRESENT: alert, awake, oriented to person, oriented to place, oriented to situation Psychiatric exam: PRESENT: appropriate affect, normal mood Skin exam: PRESENT: dry, warm Results Laboratory Results: 08/01/19 06:20 07/30/19 05:50 08/01/19 06:20 WBC 10.7 H RBC 3.45 L Hgb 11.3 L D Hct 33.5 L MCV 97 MCH 32.7 MCHC 33.7 RDW 13.3 Plt Count 143 L Impressions: Hip/Pelvis X-Ray 07/29/19 00:00 IMPRESSION: Acute, minimally displaced fracture through the lateral aspect of the right femoral neck. Chest X-Ray 07/30/19 00:00 IMPRESSION: Obstructive lung disease Question early or developing infiltrate at the right lung base Chest/Abdomen CTA 07/30/19 00:00 IMPRESSION: 1. There is no pulmonary embolus. There is no aortic aneurysm or dissection. 2. Right lower lobe atelectasis. 3. Subsegmental dependent atelectasis in left lower lobe. 4. Mild left hilar adenopathy. Assessment and Plan - Diagnosis (1) Hypoxemia Is this a current diagnosis for this admission?: Yes Plan: She did have fairly diffuse centrilobular emphysema with hyperinflated lungs on her chest CT. We have encouraged incentive spirometry and use of a flutter valve. We will keep a close eye on her in case the areas of atelectasis wind up turning into a breeding ground for pneumonia. She will likely have to be discharged on some oxygen because she is on 4L and her SPO2 is in the low 90s. (2) Femoral neck fracture Qualifiers: Encounter type: initial encounter Fracture type: closed Laterality: right Qualified Code(s): S72.001A - Fracture of unspecified part of neck of right femur, initial encounter for closed fracture Is this a current diagnosis for this admission?: Yes Plan: Per surgery. - Time Time Spent with patient: 15-24 minutes
[2019-08-01] MEDS: ACETAMINOPHEN 325 MG TABLET PO PRN (19:59)
[2019-08-02] MEDS: IPRATROPIUM/ALBUTEROL 0.5-2.5 MG/3 ML AMPUL NEB SCH ×4 (01:22→20:19)
[2019-08-02] MEDS: GABAPENTIN 300 MG CAPSULE PO SCH ×3 (06:48→21:03)
[2019-08-02] MEDS: PANTOPRAZOLE SODIUM 40 MG TABLET.DR PO SCH (06:49)
--- NOTE | 2019-08-02 06:49 | PDOC PROGRESS REPORT ---
Subjective Progress Note for:: 08/02/19 Reason For Visit: FALL,FEMORAL NECK FRACTURE 69-year-old white female status post right hip arthroplasty for femoral neck fracture. Patient continues to make slow steady progress in terms of increasing her function with physical therapy. Pain control seems to be better. Physical Exam Vital Signs: Temp Pulse Resp BP Pulse Ox 36.4 C 87 16 107/51 L 89 L 08/01/19 23:42 08/02/19 01:23 08/02/19 01:23 08/01/19 23:42 08/02/19 01:23 Intake & Output 07/31/19 08/01/19 08/02/19 06:59 06:59 06:59 Intake Total 1700 1080 1220 Output Total 1100 200 Balance 636 006 0779 Weight 66.2 kg 63.8 kg 64.1 kg General appearance: PRESENT: no acute distress, mild distress, thin Musculoskeletal exam: PRESENT: other - Right hip dressing remains clean dry and intact. Leg lengths are equal. Distal neurovascular examination is intact. Results Laboratory Results: 08/01/19 06:20 07/30/19 05:50 08/01/19 06:20 WBC 10.7 H RBC 3.45 L Hgb 11.3 L D Hct 33.5 L MCV 97 MCH 32.7 MCHC 33.7 RDW 13.3 Plt Count 143 L Impressions: Hip/Pelvis X-Ray 07/29/19 00:00 IMPRESSION: Acute, minimally displaced fracture through the lateral aspect of the right femoral neck. Chest X-Ray 07/30/19 00:00 IMPRESSION: Obstructive lung disease Question early or developing infiltrate at the right lung base Chest/Abdomen CTA 07/30/19 00:00 IMPRESSION: 1. There is no pulmonary embolus. There is no aortic aneurysm or dissection. 2. Right lower lobe atelectasis. 3. Subsegmental dependent atelectasis in left lower lobe. 4. Mild left hilar adenopathy. Status: Imported from PACS Assessment & Plan - Diagnosis (1) Femoral neck fracture Qualifiers: Encounter type: initial encounter Fracture type: closed Laterality: right Qualified Code(s): S72.001A - Fracture of unspecified part of neck of right femur, initial encounter for closed fracture Is this a current diagnosis for this admission?: Yes Plan: Patient is making progress. She continues steadfast in her goal to return home. We again reviewed the functional criteria for her to continue to do so. (2) Osteoporosis Is this a current diagnosis for this admission?: Yes - Time Time Spent with patient: 15-24 minutes Anticipated discharge: Home with Homehealth Within: Other
[2019-08-02] MEDS: OXYCODONE HCL IR 5 MG TABLET PO PRN ×2 (10:09→21:04)
[2019-08-02] MEDS: PRENATAL VITAMIN W DHA CAPSULE PO SCH (11:40)
[2019-08-02] MEDS: SENNOSIDES/DOCUSATE 8.6-50 MG 1 EACH TABLET PO SCH ×2 (11:40→17:28)
[2019-08-02] MEDS: ASPIRIN 81 MG TABLET, ENT COATED PO SCH (11:40)
--- NOTE | 2019-08-02 16:27 | PDOC PROGRESS REPORT ---
Subjective Progress Note for:: 08/02/19 Subjective:: No adverse events overnight. No fevers overnight. Stable on 3-4 L per nasal cannula. The goal for her SPO2 should be 90 to 92%, and she has been consistently in that range on 3 to 4 L. Reason For Visit: FALL,FEMORAL NECK FRACTURE Physical Exam Vital Signs: Temp Pulse Resp BP Pulse Ox 98.1 F 83 16 144/65 H 91 L 08/02/19 11:56 08/02/19 14:00 08/02/19 14:00 08/02/19 11:56 08/02/19 14:00 Intake & Output 08/01/19 08/02/19 08/03/19 06:59 06:59 06:59 Intake Total 1080 1220 300 Output Total 200 Balance 880 1220 300 Weight 63.8 kg 64.1 kg General appearance: PRESENT: no acute distress, cooperative, obese Respiratory exam: PRESENT: clear to auscultation augustine, symmetrical, unlabored. ABSENT: accessory muscle use, chest wall tenderness, crackles, prolonged expiratory phas, retraction, rhonchi, tachypnea, wheezes Cardiovascular exam: PRESENT: RRR, +S1, +S2 Pulses: PRESENT: normal carotid pulses Vascular exam: PRESENT: normal capillary refill GI/Abdominal exam: PRESENT: normal bowel sounds, soft. ABSENT: distended, guarding, rebound, tenderness Gentrourinary exam: PRESENT: indwelling catheter - Left nephrostomy Extremities exam: ABSENT: clubbing, pedal edema Musculoskeletal exam: PRESENT: normal inspection. ABSENT: deformity Neurological exam: PRESENT: alert, awake, oriented to person, oriented to place, oriented to situation Psychiatric exam: PRESENT: appropriate affect, normal mood Skin exam: PRESENT: dry, warm Results Laboratory Results: 08/01/19 06:20 07/30/19 05:50 Impressions: Hip/Pelvis X-Ray 07/29/19 00:00 IMPRESSION: Acute, minimally displaced fracture through the lateral aspect of the right femoral neck. Chest X-Ray 07/30/19 00:00 IMPRESSION: Obstructive lung disease Question early or developing infiltrate at the right lung base Chest/Abdomen CTA 07/30/19 00:00 IMPRESSION: 1. There is no pulmonary embolus. There is no aortic aneurysm or dissection. 2. Right lower lobe atelectasis. 3. Subsegmental dependent atelectasis in left lower lobe. 4. Mild left hilar adenopathy. Assessment and Plan - Diagnosis (1) Hypoxemia Is this a current diagnosis for this admission?: Yes Plan: She did have fairly diffuse centrilobular emphysema with hyperinflated lungs on her chest CT. We have encouraged incentive spirometry and use of a flutter valve. We will keep a close eye on her in case the areas of atelectasis wind up turning into a breeding ground for pneumonia, but that has not happened thus far. She will likely have to be discharged on some oxygen because she is on 3- 4L and her SPO2 is in the low 90s. This is definitely a chronic hypoxemic respiratory failure due to centrilobular emphysema. (2) Femoral neck fracture Qualifiers: Encounter type: initial encounter Fracture type: closed Laterality: right Qualified Code(s): S72.001A - Fracture of unspecified part of neck of right femur, initial encounter for closed fracture Is this a current diagnosis for this admission?: Yes Plan: Per surgery. - Time Time Spent with patient: 15-24 minutes
[2019-08-02] MEDS: ACETAMINOPHEN 325 MG TABLET PO PRN (21:03)
[2019-08-03] MEDS: IPRATROPIUM/ALBUTEROL 0.5-2.5 MG/3 ML AMPUL NEB SCH ×4 (02:54→20:12)
[2019-08-03] MEDS: OXYCODONE HCL IR 5 MG TABLET PO PRN ×3 (06:33→19:46)
[2019-08-03] MEDS: GABAPENTIN 300 MG CAPSULE PO SCH ×3 (06:34→22:16)
[2019-08-03] MEDS: PANTOPRAZOLE SODIUM 40 MG TABLET.DR PO SCH (06:34)
[2019-08-03] MEDS: MORPHINE SULFATE 10 MG/ML INJ IV PRN ×2 (07:56→17:16)
--- NOTE | 2019-08-03 08:11 | PDOC PROGRESS REPORT ---
Subjective Progress Note for:: 08/03/19 Reason For Visit: FALL,FEMORAL NECK FRACTURE 69-year-old female status post right hip arthroplasty for femoral neck fracture. Patient making slow progress with physical therapy. Her stated intention is to return home with home health services and DME. Physical Exam Vital Signs: Temp Pulse Resp BP Pulse Ox 36.7 C 79 16 117/57 L 91 L 08/02/19 23:36 08/03/19 02:55 08/03/19 02:55 08/02/19 23:36 08/03/19 02:55 Intake & Output 08/02/19 08/03/19 08/04/19 06:59 06:59 06:59 Intake Total 1220 778 Balance 1220 778 Weight 64.1 kg 63 kg General appearance: PRESENT: mild distress Extremities exam: PRESENT: other - Right hip dressing clean dry and intact. Leg lengths are equal. Distal neurovascular examination is intact. Results Laboratory Results: 08/01/19 06:20 07/30/19 05:50 Impressions: Hip/Pelvis X-Ray 07/29/19 00:00 IMPRESSION: Acute, minimally displaced fracture through the lateral aspect of the right femoral neck. Chest X-Ray 07/30/19 00:00 IMPRESSION: Obstructive lung disease Question early or developing infiltrate at the right lung base Chest/Abdomen CTA 07/30/19 00:00 IMPRESSION: 1. There is no pulmonary embolus. There is no aortic aneurysm or dissection. 2. Right lower lobe atelectasis. 3. Subsegmental dependent atelectasis in left lower lobe. 4. Mild left hilar adenopathy. Assessment & Plan - Diagnosis (1) Femoral neck fracture Qualifiers: Encounter type: initial encounter Fracture type: closed Laterality: right Qualified Code(s): S72.001A - Fracture of unspecified part of neck of right femur, initial encounter for closed fracture Is this a current diagnosis for this admission?: Yes Plan: Mobilized with physical therapy and a touchdown weightbearing restriction. Anticipate discharge home once functional criteria have been met (2) Osteoporosis Is this a current diagnosis for this admission?: Yes - Time Time Spent with patient: 15-24 minutes Anticipated discharge: Home with Homehealth Within: Other
[2019-08-03] MEDS: SENNOSIDES/DOCUSATE 8.6-50 MG 1 EACH TABLET PO SCH ×2 (09:59→17:11)
[2019-08-03] MEDS: PRENATAL VITAMIN W DHA CAPSULE PO SCH (09:59)
[2019-08-03] MEDS: ASPIRIN 81 MG TABLET, ENT COATED PO SCH (09:59)
[2019-08-03] MEDS ORDERED: MINERAL OIL ENEMA 133 ML PR ONE (13:30)
[2019-08-03] MEDS: ACETAMINOPHEN 325 MG TABLET PO PRN (13:41)
--- NOTE | 2019-08-03 13:59 | PDOC PROGRESS REPORT ---
Subjective Progress Note for:: 08/03/19 Subjective:: No adverse events overnight. No fevers overnight. Stable on 3-4 L per nasal cannula. The goal for her SPO2 should be 90 to 92%, and she has been consistently in that range on 3 to 4 L. Reason For Visit: FALL,FEMORAL NECK FRACTURE Physical Exam Vital Signs: Temp Pulse Resp BP Pulse Ox 98.3 F 86 17 145/69 H 97 08/03/19 11:02 08/03/19 11:02 08/03/19 11:02 08/03/19 11:02 08/03/19 11:02 Intake & Output 08/02/19 08/03/19 08/04/19 06:59 06:59 06:59 Intake Total 1220 778 118 Balance 1220 778 118 Weight 64.1 kg 63 kg General appearance: PRESENT: no acute distress, cooperative, obese Respiratory exam: PRESENT: clear to auscultation augustine, symmetrical, unlabored. ABSENT: accessory muscle use, chest wall tenderness, crackles, prolonged expiratory phas, retraction, rhonchi, tachypnea, wheezes Cardiovascular exam: PRESENT: RRR, +S1, +S2 Pulses: PRESENT: normal carotid pulses Vascular exam: PRESENT: normal capillary refill GI/Abdominal exam: PRESENT: normal bowel sounds, soft. ABSENT: distended, guarding, rebound, tenderness Gentrourinary exam: PRESENT: indwelling catheter - Left nephrostomy Extremities exam: ABSENT: clubbing, pedal edema Musculoskeletal exam: PRESENT: normal inspection. ABSENT: deformity Neurological exam: PRESENT: alert, awake, oriented to person, oriented to place, oriented to situation Psychiatric exam: PRESENT: appropriate affect, normal mood Skin exam: PRESENT: dry, warm Results Laboratory Results: 08/01/19 06:20 07/30/19 05:50 Impressions: Hip/Pelvis X-Ray 07/29/19 00:00 IMPRESSION: Acute, minimally displaced fracture through the lateral aspect of the right femoral neck. Chest X-Ray 07/30/19 00:00 IMPRESSION: Obstructive lung disease Question early or developing infiltrate at the right lung base Chest/Abdomen CTA 07/30/19 00:00 IMPRESSION: 1. There is no pulmonary embolus. There is no aortic aneurysm or dissection. 2. Right lower lobe atelectasis. 3. Subsegmental dependent atelectasis in left lower lobe. 4. Mild left hilar adenopathy. Assessment and Plan - Diagnosis (1) Hypoxemia Is this a current diagnosis for this admission?: Yes Plan: She did have fairly diffuse centrilobular emphysema with hyperinflated lungs on her chest CT. We have encouraged incentive spirometry and use of a flutter valve. We will keep a close eye on her in case the areas of atelectasis wind up turning into a breeding ground for pneumonia, but that has not happened thus far. She will likely have to be discharged on some oxygen because she is on 3- 4L and her SPO2 is in the low 90s. This is definitely a chronic hypoxemic respiratory failure due to centrilobular emphysema. (2) Femoral neck fracture Qualifiers: Encounter type: initial encounter Fracture type: closed Laterality: right Qualified Code(s): S72.001A - Fracture of unspecified part of neck of right femur, initial encounter for closed fracture Is this a current diagnosis for this admission?: Yes Plan: Per surgery. - Time Time Spent with patient: 15-24 minutes
[2019-08-03] MEDS ORDERED: BISACODYL 10 MG SUPP.RECT PR PRN (14:26)
[2019-08-04] MEDS: IPRATROPIUM/ALBUTEROL 0.5-2.5 MG/3 ML AMPUL NEB SCH ×4 (02:05→20:15)
[2019-08-04] MEDS: PANTOPRAZOLE SODIUM 40 MG TABLET.DR PO SCH (05:26)
[2019-08-04] MEDS: MORPHINE SULFATE 10 MG/ML INJ IV PRN ×3 (05:26→18:48)
[2019-08-04] MEDS: GABAPENTIN 300 MG CAPSULE PO SCH ×3 (05:26→21:39)
[2019-08-04] MEDS: OXYCODONE HCL IR 5 MG TABLET PO PRN ×3 (07:36→21:38)
[2019-08-04] MEDS: ACETAMINOPHEN 325 MG TABLET PO PRN ×2 (07:37→14:29)
[2019-08-04] MEDS ORDERED: ZOLPIDEM TARTRATE 5 MG TABLET PO PRN (07:44)
--- NOTE | 2019-08-04 07:46 | PDOC PROGRESS REPORT ---
Subjective Progress Note for:: 08/04/19 Reason For Visit: FALL,FEMORAL NECK FRACTURE 69-year-old white female status post right hip arthroplasty for femoral neck fracture. Patient making progress with physical therapy and has been ambulating with nursing from bed to bathroom successfully. Physical Exam Vital Signs: Temp Pulse Resp BP Pulse Ox 36.8 C 79 16 127/58 H 93 08/03/19 23:21 08/04/19 02:06 08/04/19 02:06 08/03/19 23:21 08/04/19 02:06 Intake & Output 08/03/19 08/04/19 08/05/19 06:59 06:59 06:59 Intake Total 778 576 Balance 778 576 Weight 63 kg 60.7 kg General appearance: PRESENT: no acute distress, mild distress Respiratory exam: PRESENT: unlabored Cardiovascular exam: PRESENT: RRR Pulses: PRESENT: +1 pedal pulses bilateral Extremities exam: PRESENT: other - Right hip dressing clean dry and intact. Leg lengths are equal. Distal neurovascular examination is intact. Results Laboratory Results: 08/01/19 06:20 07/30/19 05:50 Impressions: Hip/Pelvis X-Ray 07/29/19 00:00 IMPRESSION: Acute, minimally displaced fracture through the lateral aspect of the right femoral neck. Chest X-Ray 07/30/19 00:00 IMPRESSION: Obstructive lung disease Question early or developing infiltrate at the right lung base Chest/Abdomen CTA 07/30/19 00:00 IMPRESSION: 1. There is no pulmonary embolus. There is no aortic aneurysm or dissection. 2. Right lower lobe atelectasis. 3. Subsegmental dependent atelectasis in left lower lobe. 4. Mild left hilar adenopathy. Status: Imported from PACS Assessment & Plan - Diagnosis (1) Femoral neck fracture Qualifiers: Encounter type: initial encounter Fracture type: closed Laterality: right Qualified Code(s): S72.001A - Fracture of unspecified part of neck of right femur, initial encounter for closed fracture Is this a current diagnosis for this admission?: Yes Plan: Anticipate discharge home tomorrow with home health services and DME. (2) Osteoporosis Is this a current diagnosis for this admission?: Yes - Time Time Spent with patient: 15-24 minutes Anticipated discharge: Home with Homehealth Within: within 24 hours
[2019-08-04] MEDS: ASPIRIN 81 MG TABLET, ENT COATED PO SCH (09:20)
[2019-08-04] MEDS: PRENATAL VITAMIN W DHA CAPSULE PO SCH (09:20)
[2019-08-04] MEDS: SENNOSIDES/DOCUSATE 8.6-50 MG 1 EACH TABLET PO SCH ×2 (09:20→16:59)
[2019-08-04] MEDS: CYCLOBENZAPRINE HCL 10 MG TABLET PO PRN ×2 (14:42→21:41)
--- NOTE | 2019-08-04 15:21 | PDOC PROGRESS REPORT ---
Subjective Progress Note for:: 08/04/19 Subjective:: No adverse events overnight. No fevers overnight. Stable on 3-4 L per nasal cannula. The goal for her SPO2 should be 90 to 92%, and she has been consistently in that range on 3 to 4 L. Eating and drinking without difficulty. Continue to work with physical therapy. Reason For Visit: FALL,FEMORAL NECK FRACTURE Physical Exam Vital Signs: Temp Pulse Resp BP Pulse Ox 98.8 F 71 16 125/66 93 08/04/19 11:35 08/04/19 14:20 08/04/19 14:20 08/04/19 11:35 08/04/19 14:20 Intake & Output 08/03/19 08/04/19 08/05/19 06:59 06:59 06:59 Intake Total 778 576 480 Balance 778 576 480 Weight 63 kg 60.7 kg General appearance: PRESENT: no acute distress, cooperative, obese Respiratory exam: PRESENT: clear to auscultation augustine, symmetrical, unlabored. ABSENT: accessory muscle use, chest wall tenderness, crackles, prolonged expiratory phas, retraction, rhonchi, tachypnea, wheezes Cardiovascular exam: PRESENT: RRR, +S1, +S2 Pulses: PRESENT: normal carotid pulses Vascular exam: PRESENT: normal capillary refill GI/Abdominal exam: PRESENT: normal bowel sounds, soft. ABSENT: distended, guard ing, rebound, tenderness Gentrourinary exam: PRESENT: indwelling catheter - Left nephrostomy Extremities exam: ABSENT: clubbing, pedal edema Musculoskeletal exam: PRESENT: normal inspection. ABSENT: deformity Neurological exam: PRESENT: alert, awake, oriented to person, oriented to place, oriented to situation Psychiatric exam: PRESENT: appropriate affect, normal mood Skin exam: PRESENT: dry, warm Results Laboratory Results: 08/01/19 06:20 07/30/19 05:50 Impressions: Hip/Pelvis X-Ray 07/29/19 00:00 IMPRESSION: Acute, minimally displaced fracture through the lateral aspect of the right femoral neck. Chest X-Ray 07/30/19 00:00 IMPRESSION: Obstructive lung disease Question early or developing infiltrate at the right lung base Chest/Abdomen CTA 07/30/19 00:00 IMPRESSION: 1. There is no pulmonary embolus. There is no aortic aneurysm or dissection. 2. Right lower lobe atelectasis. 3. Subsegmental dependent atelectasis in left lower lobe. 4. Mild left hilar adenopathy. Assessment and Plan - Diagnosis (1) Hypoxemia Is this a current diagnosis for this admission?: Yes Plan: She did have fairly diffuse centrilobular emphysema with hyperinflated lungs on her chest CT. We have encouraged incentive spirometry and use of a flutter valve. We will keep a close eye on her in case the areas of atelectasis wind up turning into a breeding ground for pneumonia, but that has not happened thus far. She will likely have to be discharged on some oxygen because she is on 3- 4L and her SPO2 is in the low 90s. This is definitely a chronic hypoxemic respiratory failure due to centrilobular emphysema. (2) Femoral neck fracture Qualifiers: Encounter type: initial encounter Fracture type: closed Laterality: right Qualified Code(s): S72.001A - Fracture of unspecified part of neck of right femur, initial encounter for closed fracture Is this a current diagnosis for this admission?: Yes Plan: Per surgery. - Time Time Spent with patient: 15-24 minutes
[2019-08-05] MEDS: IPRATROPIUM/ALBUTEROL 0.5-2.5 MG/3 ML AMPUL NEB SCH ×3 (01:46→14:32)
[2019-08-05] MEDS: MORPHINE SULFATE 10 MG/ML INJ IV PRN ×2 (03:32→11:07)
[2019-08-05] MEDS: PANTOPRAZOLE SODIUM 40 MG TABLET.DR PO SCH (05:41)
[2019-08-05] MEDS: GABAPENTIN 300 MG CAPSULE PO SCH ×2 (05:41→14:18)
[2019-08-05] MEDS: OXYCODONE HCL IR 5 MG TABLET PO PRN ×2 (05:41→14:18)
[2019-08-05] MEDS: CYCLOBENZAPRINE HCL 10 MG TABLET PO PRN (05:41)
--- NOTE | 2019-08-05 07:14 | PDOC DISCHARGE SUMMARY ---
Impression - Admit/DC Date/PCP Admission Date/Primary Care Provider: 07/29/19 06:29 GONZALO CARMONA MD Discharge Date: 08/05/19 - Discharge Diagnosis (1) Femoral neck fracture Is this a current diagnosis for this admission?: Yes (2) Osteoporosis Is this a current diagnosis for this admission?: Yes - Additional Information Resuscitation Status: Full Code Discharge Diet: Regular Discharge Activity: Balance Activity w/Rest, No tub bath Referrals: SAHARA FERRARA MD [ACTIVE STAFF] - Home Medications: Albuterol Sulfate [Ventolin Hfa 8 gm Mdi (1 Mdi/ER Disp)] 2 puff IH Q6HP PRN 05/16/18 Tramadol HCl [Ultram] 50 mg PO Q8HP PRN MDD 300 MG (1-2 TAB PER DOSE) 05/16/18 Cyclobenzaprine HCl [Flexeril 10 mg Tablet] 10 mg PO TIDP PRN 07/29/19 Gabapentin [Neurontin] 600 mg PO Q8 07/29/19 History of Present Illiness History of Present Illness: Patient is a 69-year-old white female with a DEXA diagnosed osteoporosis who tripped and fell and sustained a right hip injury. She is brought to emergency room where a femoral neck fracture was then applied. She is subsequent taken to the operating room and underwent a right hip arthroplasty. She is returned to the floor in satisfactory addition. She is ambulate with physical therapy on a touchdown weightbearing restriction on the right lower extremity. Hospital Course Hospital Course: As above Physical Exam Vital Signs: Temp Pulse Resp BP Pulse Ox 36.8 C 79 18 121/57 L 922 H 08/04/19 23:56 08/05/19 01:47 08/05/19 01:47 08/04/19 23:56 08/05/19 01:47 Intake & Output 08/04/19 08/05/19 08/06/19 06:59 06:59 06:59 Intake Total 576 1440 Balance 576 1440 Weight 60.7 kg 60.2 kg General appearance: PRESENT: mild distress, thin Head exam: PRESENT: normocephalic Respiratory exam: PRESENT: unlabored Cardiovascular exam: PRESENT: RRR Pulses: PRESENT: +1 pedal pulses bilateral Vascular exam: PRESENT: normal capillary refill GI/Abdominal exam: PRESENT: soft Rectal exam: PRESENT: deferred Musculoskeletal exam: PRESENT: other - Right hip dressing clean dry and intact. Leg lengths are equal. Distal neurovascular semination is intact. Results Laboratory Results: WBC 10.7 10^3/uL (4.0-10.5) H 08/01/19 06:20 RBC 3.45 10^6/uL (3.72-5.28) L 08/01/19 06:20 Hgb 11.3 g/dL (12.0-15.5) L D 08/01/19 06:20 Hct 33.5 % (36.0-47.0) L 08/01/19 06:20 MCV 97 fl (80-97) 08/01/19 06:20 MCH 32.7 pg (27.0-33.4) 08/01/19 06:20 MCHC 33.7 g/dL (32.0-36.0) 08/01/19 06:20 RDW 13.3 % (11.5-14.0) 08/01/19 06:20 Plt Count 143 10^3/uL (150-450) L 08/01/19 06:20 Lymph % (Auto) 10.0 % (13-45) L 07/29/19 04:50 [place] % (Auto) 4.3 % (3-13) 07/29/19 04:50 Eos % (Auto) 0.4 % (0-6) 07/29/19 04:50 Baso % (Auto) 0.4 % (0-2) 07/29/19 04:50 Absolute Neuts (auto) 10.2 10^3/uL (1.7-8.2) H 07/29/19 04:50 Absolute Lymphs (auto) 1.2 10^3/uL (0.5-4.7) 07/29/19 04:50 Absolute Monos (auto) 0.5 10^3/uL (0.1-1.4) 07/29/19 04:50 Absolute Eos (auto) 0.0 10^3/uL (0.0-0.6) 07/29/19 04:50 Absolute Basos (auto) 0.0 10^3/uL (0.0-0.2) 07/29/19 04:50 Seg Neutrophils % 84.9 % (42-78) H 07/29/19 04:50 PT 11.9 SEC (11.4-15.4) 07/29/19 04:50 INR 0.87 07/29/19 04:50 Carbonic Acid 1.18 mmol/L (1.05-1.35) 07/30/19 13:05 HCO3/H2CO3 Ratio 21:1 07/30/19 13:05 ABG pH 7.42 (7.35-7.45) 07/30/19 13:05 ABG pCO2 39.3 mmHg (35-45) 07/30/19 13:05 ABG pO2 40.8 mmHg (80-100) L* 07/30/19 13:05 ABG HCO3 24.8 mmol/L (20-24) H 07/30/19 13:05 ABG Total CO2 26.0 mmol/L (21-25) H 07/30/19 13:05 ABG O2 Saturation 77.1 % (94-98) L 07/30/19 13:05 ABG Base Excess 0.4 mmol/L 07/30/19 13:05 FiO2 ROOM AIR 07/30/19 13:05 Sodium 136.1 mmol/L (137-145) L 07/30/19 05:50 Potassium 4.8 mmol/L (3.6-5.0) 07/30/19 05:50 Chloride 103 mmol/L (98-107) 07/30/19 05:50 Carbon Dioxide 30 mmol/L (22-30) 07/30/19 05:50 Anion Gap 3 (5-19) L 07/30/19 05:50 BUN 13 mg/dL (7-20) 07/30/19 05:50 Creatinine 0.86 mg/dL (0.52-1.25) 07/30/19 05:50 Est GFR ( Amer) > 60 (>60) 07/30/19 05:50 Est GFR (MDRD) Non-Af > 60 (>60) 07/30/19 05:50 Glucose 118 mg/dL (75-110) H 07/30/19 05:50 POC Glucose 111 mg/dL (70-110) H 07/31/19 15:56 Calcium 8.4 mg/dL (8.4-10.2) 07/30/19 05:50 Urine Color YELLOW 07/29/19 05:35 Urine Appearance CLEAR 07/29/19 05:35 Urine pH 7.0 (5.0-9.0) 07/29/19 05:35 Ur Specific [place] 1.016 07/29/19 05:35 Urine Protein NEGATIVE mg/dL (NEGATIVE) 07/29/19 05:35 Urine Glucose (UA) NEGATIVE mg/dL (NEGATIVE) 07/29/19 05:35 Urine Ketones NEGATIVE mg/dL (NEGATIVE) 07/29/19 05:35 Urine Blood NEGATIVE (NEGATIVE) 07/29/19 05:35 Urine Nitrite NEGATIVE (NEGATIVE) 07/29/19 05:35 Urine Bilirubin NEGATIVE (NEGATIVE) 07/29/19 05:35 Urine Urobilinogen NEGATIVE mg/dL (<2.0) 07/29/19 05:35 Ur Leukocyte Esterase NEGATIVE (NEGATIVE) 07/29/19 05:35 Urine WBC (Auto) 1 /HPF 07/29/19 05:35 Urine RBC (Auto) 15 /HPF 07/29/19 05:35 U Hyaline Cast (Auto) 1 /LPF 07/29/19 05:35 Squamous Epi Cells Auto <1 /HPF 07/29/19 05:35 Urine Mucus (Auto) RARE /LPF 07/29/19 05:35 Urine Ascorbic Acid NEGATIVE (NEGATIVE) 07/29/19 05:35 Impressions: Hip/Pelvis X-Ray 07/29/19 00:00 IMPRESSION: Acute, minimally displaced fracture through the lateral aspect of the right femoral neck. Chest X-Ray 07/29/19 04:19 IMPRESSION: Clear lungs. Chest X-Ray 07/30/19 00:00 IMPRESSION: Obstructive lung disease Question early or developing infiltrate at the right lung base Chest/Abdomen CTA 07/30/19 00:00 IMPRESSION: 1. There is no pulmonary embolus. There is no aortic aneurysm or dissection. 2. Right lower lobe atelectasis. 3. Subsegmental dependent atelectasis in left lower lobe. 4. Mild left hilar adenopathy. Plan Plan of Treatment: Charge home with home health services and DME on a touchdown weightbearing restriction on the right lower extremity. Follow-up with Dr. Ferrara and [facility] for [facility] in 2 weeks for staple removal. Stroke Is this a Stroke Patient?: No Stroke Pt being discharged on Anti-thrombolytic therapy?: Yes Acute Heart Failure - Is this a Heart Failure Patient?: No
[2019-08-05] MEDS: ASPIRIN 81 MG TABLET, ENT COATED PO SCH (11:00)
[2019-08-05] MEDS: PRENATAL VITAMIN W DHA CAPSULE PO SCH (11:00)
[2019-08-05] MEDS: SENNOSIDES/DOCUSATE 8.6-50 MG 1 EACH TABLET PO SCH ×2 (11:00→17:23)
[2019-08-05 18:48] VITALS: BP 150/79
== END 2019-08-05 19:23 | disposition home health service (06) | DRG 470 ==
LOC: ER 04:06 → EH 06:29 → 4S 18:30
PROVIDERS: ADMIT Orthopaedic Surgery; ATTEND Orthopaedic Surgery
PROC: 0SR902A Replacement of Right Hip Joint with Metal on Polyethylene Synthetic Substitute, Uncemented, Open Approach (ICD-10-PCS; principal; 2019-07-29 13:30)
DX: S72.001A Fracture of unspecified part of neck of right femur, initial encounter for closed fracture (principal); W19.XXXA Unspecified fall, initial encounter; Y92.9 Unspecified place or not applicable; M81.0 Age-related osteoporosis without current pathological fracture; W01.0XXA Fall on same level from slipping, tripping and stumbling without subsequent striking against object, initial encounter; R09.02 Hypoxemia; Z79.899 Other long term (current) drug therapy; Z88.2 Allergy status to sulfonamides; Z88.6 Allergy status to analgesic agent
CPT/HCPCS: 01214; 36415; 36600; 51702; 71045; 71046; 71275; 80048; 81001; 82803; 82962; 85025; 85027; 85610; 88304; 88311; 93005; 93010; 94640; 94667; 94668; 94799; 96374; 99285; C1713; C1776; C9290; J0131; J0690; J1741; J2250; J2270; J2704; J3010; J3370; J3490; J7030; J7050; J7060; J7120; J7620; S0119

== ENCOUNTER 2019-10-21 05:44 | Inpatient (IN) | payer MEDICARE ==
--- NOTE | 2019-10-18 12:32 | RADIOLOGY REPORT (SQ) ---
EXAM DESCRIPTION: CHEST PA/LATERAL IMAGES COMPLETED DATE/TIME: 10/18/2019 12:16 pm REASON FOR STUDY: PRE-OP COMPARISON: 07/30/2019 EXAM PARAMETERS: NUMBER OF VIEWS: two views TECHNIQUE: Digital Frontal and Lateral radiographic views of the chest acquired. RADIATION DOSE: NA LIMITATIONS: none FINDINGS: LUNGS AND PLEURA: Lung zuñiga are hyperexpanded. No consolidation or effusions. No pneum othorax. MEDIASTINUM AND HILAR STRUCTURES: No masses or contour abnormalities. HEART AND VASCULAR STRUCTURES: Heart normal size. No evidence for failure. BONES: No acute findings. HARDWARE: None in the chest. OTHER: No other significant finding. IMPRESSION: COPD. No acute findings in the chest. TECHNICAL DOCUMENTATION: JOB ID: [id number] 2010 [employer]- All Rights Reserved Reading location - IP/workstation name: [email or web address]
--- NOTE | 2019-10-18 12:53 | EKG REPORT ---
SEVERITY:- ABNORMAL ECG - SINUS RHYTHM PROBABLE LEFT ATRIAL ABNORMALITY PROBABLE ANTEROSEPTAL INFARCT, AGE INDETERM : Confirmed by: Yakov Harvey MD 18-Oct-2019 12:52:50
[2019-10-18 13:27] LABS: ABSOLUTE BASOPHILS # (AUTO) 0.1 10^3/uL (0.0-0.2); ABSOLUTE LYMPHOCYTES (AUTO) 2.2 10^3/uL (0.5-4.7); ABSOLUTE MONOCYTES (AUTO) 0.4 10^3/uL (0.1-1.4); ABSOLUTE NEUT (AUTO) 3.3 10^3/uL (1.7-8.2); BASOPHILS % (AUTO) 1.2 % (0-2); EOSINOPHILS % (AUTO) 0.7 % (0-6); HEMATOCRIT 40.7 % (36.0-47.0); HEMOGLOBIN 13.9 g/dL (12.0-15.5); LYMPHOCYTES % (AUTO) 37.1 % (13-45); MEAN CORPUSCULAR HEMOGLOBIN 32.3 pg (27.0-33.4); MEAN CORPUSCULAR HGB CONC 34.2 g/dL (32.0-36.0); MEAN CORPUSCULAR VOLUME 95 fl (80-97); MONOCYTES % (AUTO) 6.1 % (3-13); PLATELET COUNT 287 10^3/uL (150-450); RED CELL DISTRIBUTION WIDTH 14.5 % (11.5-14.0); SEGMENTED NEUTROPHILS % (AUTO) 54.9 % (42-78); TOTAL CELLS COUNTED % (AUTO) 100 %
[2019-10-18 13:38] LABS: APPEARANCE,URINE CLEAR; BILIRUBIN,URINE NEGATIVE (NEGATIVE); COLOR,URINE YELLOW; GLUCOSE, URINE NEGATIVE (NEGATIVE); KETONES,URINE NEGATIVE (NEGATIVE); LEUKOCYTE ESTERASE,URINE NEGATIVE (NEGATIVE); NITRITE,URINE NEGATIVE (NEGATIVE); PROTEIN,URINE NEGATIVE (NEGATIVE); URINE SPECIFIC GRAVITY 1.011; UROBILINOGEN,URINE NEGATIVE mg/dL (<2.0)
[~2019-10-21 05:44] MED LIST changes: +BUPIVACAINE INJ/PF LIPOSOME/PF 266 MG/20 ML SDV INJ PRN; +CEFAZOLIN INJ 1 GM VIAL IV PRN; +IBUPROFEN 800 MG in NORMAL SALINE 250 ML IV PRN; +OXYCODONE HCL SR 10 MG TABLET PO PRN; +PANTOPRAZOLE SODIUM 20 MG TABLET.DR PO PRN; +VANCOMYCIN HCL 1,000 MG in DEXTROSE 5%-WATER 250 ML IV PRN
[2019-10-21] MEDS ORDERED: PROPOFOL INJ 200 MG/20 ML VIAL IV ONE (06:28)
[2019-10-21] MEDS ORDERED: TRANEXAMIC ACID INJ/PF 1,000 MG/10 ML SDV ONE (06:28)
[2019-10-21] MEDS ORDERED: MIDAZOLAM 2 MG/2 ML INJ ONE (06:28)
[2019-10-21] MEDS ORDERED: FENTANYL CITRATE INJ/PF 100 MCG/2 ML AMPUL ONE (06:28)
[2019-10-21] MEDS ORDERED: ONDANSETRON HCL INJ/PF 4 MG/2 ML SDV ONE (07:06)
[2019-10-21] MEDS ORDERED: DEXAMETHASONE SOD PHOSPHATE INJ 4 MG/1 ML VIAL ONE (07:06)
[2019-10-21] MEDS ORDERED: OXYCODONE HCL SR 10 MG TABLET PO ONE (09:39)
[2019-10-21] MEDS ORDERED: CEFAZOLIN INJ 1 GM VIAL ONE (09:40)
[2019-10-21] MEDS ORDERED: PANTOPRAZOLE SODIUM 20 MG TABLET.DR PO ONE (09:42)
[2019-10-21 10:27] LABS: ANION GAP 5 (5-19); BLOOD UREA NITROGEN 22 mg/dL (7-20); CALCIUM 9.9 mg/dL (8.4-10.2); CARBON DIOXIDE 32 mmol/L (22-30); CHLORIDE 101 mmol/L (98-107); GLUCOSE 97 mg/dL (75-110)
[2019-10-21] MEDS ORDERED: EPINEPHRINE INJ/PF 1 MG/1 ML AMPULE ONE (12:55)
[2019-10-21] MEDS ORDERED: BUPIVACAINE INJ/PF LIPOSOME/PF 266 MG/20 ML SDV ONE (13:11)
[2019-10-21] MEDS ORDERED: THROMBIN (BOVINE) TOPICAL 5000 UNIT VIAL ONE (13:11)
[2019-10-21] MEDS ORDERED: THROMBIN (BOVINE) TOPICAL 20000 UNIT VIAL ONE (13:11)
[2019-10-21] MEDS ORDERED: MORPHINE SULFATE 10 MG/ML INJ IV PRN (13:56)
[2019-10-21] MEDS ORDERED: MEPERIDINE HCL/PF INJ 25 MG/1 ML DISP.SYRIN IV PRN (13:56)
[2019-10-21] MEDS ORDERED: FENTANYL CITRATE INJ/PF 100 MCG/2 ML AMPUL IV PRN ×3 (13:56)
[2019-10-21] MEDS ORDERED: PROMETHAZINE HCL INJ 25 MG/1 ML VIAL IV PRN ×2 (13:56)
[2019-10-21] MEDS ORDERED: DIPHENHYDRAMINE HCL 50 MG/ML VIAL IV PRN (13:56)
[2019-10-21] MEDS ORDERED: ONDANSETRON HCL INJ/PF 4 MG/2 ML SDV IV PRN (14:20)
[2019-10-21] MEDS ORDERED: TRANEXAMIC ACID INJ/PF 1,000 MG/10 ML SDV IV ONE (14:20)
[2019-10-21] MEDS ORDERED: ACETAMINOPHEN 325 MG TABLET PO PRN (14:20)
[2019-10-21] MEDS ORDERED: MAG HYDROX/AL HYDROX/SIMETH SUSP 30 ML UDCUP PO PRN (14:20)
[2019-10-21] MEDS ORDERED: RINGERS SOLUTION,LACTATED 1,000 ML IV PRN (14:20)
[2019-10-21] MEDS ORDERED: ONDANSETRON 4 MG TAB.RAPDIS PO PRN (14:20)
[2019-10-21] MEDS ORDERED: ZOLPIDEM TARTRATE 5 MG TABLET PO PRN (14:20)
--- NOTE | 2019-10-21 14:20 | Operative Report ---
Operative Report DATE OF SURGERY: 10/21/19 PREOPERATIVE DIAGNOSIS: Failed right hip arthroplasty OPERATION: Revision right hip arthroplasty SURGEON: SAHARA FERRARA ANESTHESIA: Spinal TISSUE REMOVED OR ALTERED: Cultures to microbiology. Implant to CSS ESTIMATED BLOOD LOSS: 100 PROCEDURE: Implants used: Femur: [place] modular amish stem 16 mm x 155 mm, 23 mm proximal standard body, 36 mm chrome cobalt standard neck Acetabular shell:[] Liner:[] Head:[] The patient is placed in a left lateral decubitus position on the operating table. The right lower extremity and hindquarter is prepped and draped in a sterile fashion. A curvilinear incision was made over the greater is debrided a posterior approach the hip was taken. Upon entering the capsule cultures sent for culture and sensitivity. The hip is dislocated and the femoral head and neck visualized. The femoral head is disimpacted from the trunnion. The overgrowth of the greater trochanter is debrided and the underlying femoral stem is removed. The femur was then prepared using a series of conical reamers until a 16 mm reamer is seated. A 16 mm x 155 mm stem is then impacted into the proximal f emoral diaphysis. The proximal femur is then prepared for 23 mm proximal body. A trial 23 mm proximal body is impacted onto the trunnion. A trial reduction was now performed using a 36 millimeters head with standard neck. Preoperative leg length significantly improved but may be slightly less than the contralateral extremity. And is excellent anterior posterior stability. A decision was made to proceed with the above construct. All trial implants were removed. The wound is irrigated with pulsed lavage. A 3 mm proximal body is impacted onto the trunnion and secured with a screw and a torque wrench. the final chrome-cobalt head is impacted onto the trunnion. The hip was reduced. Wound is copiously irrigated with pulsed lavage. Wound is closed in layers using interrupted Vicryl followed by jessenia. A sterile dressing is applied and the patient's returned to recovery room in satisfactory patient.
--- NOTE | 2019-10-21 15:48 | RADIOLOGY REPORT (SQ) ---
EXAM DESCRIPTION: HIP RIGHT AP/LATERAL IMAGES COMPLETED DATE/TIME: 10/21/2019 3:12 pm REASON FOR STUDY: Post Op Long Cassette in PACU S72.001D FX UNSP PART OF NK OF R FEMR, SUBS FOR CL OS FX W RO M25.551 PAIN IN RIGHT HIP COMPARISON: None. NUMBER OF VIEWS: Two views. TECHNIQUE: AP pelvis and additional frog-leg view of the right hip. LIMITATIONS: None. FINDINGS: MINERALIZATION: Normal. RIGHT HIP: Status post right DONNA ; the hardware is anatomic alignment. There is no periprosthetic fr acture. LEFT HIP: No fracture or dislocation. No worrisome bone lesions. PUBIS AND ISCHIUM: The ilioischial and iliopectineal lines are intact. There is no diastasis of the pubic symphysis. PELVIS: No fracture. SACRUM: The sacrum is obscured by overlying bowel. LOWER LUMBAR SPINE: The lower lumbar spine is obscured by overlying bowel. SOFT TISSUES: Subcutaneous emphysema lateral and superior to the right femur. OTHER: No other finding. IMPRESSION: Status post right DONNA with expected immediate postoperative findings. TECHNICAL DOCUMENTATION: JOB ID: [id number] 2010 [employer]- All Rights Reserved Reading location - IP/workstation name: [email or web address]
[2019-10-21] MEDS: SENNOSIDES/DOCUSATE 8.6-50 MG 1 EACH TABLET PO SCH (18:14)
[2019-10-21] MEDS: OXYCODONE HCL IR 5 MG TABLET PO PRN (18:25)
[2019-10-21] MEDS: GABAPENTIN 300 MG CAPSULE PO SCH (21:05)
[2019-10-21] MEDS: OXYCODONE HCL SR 10 MG TABLET PO SCH (21:05)
[2019-10-21] MEDS: IBUPROFEN 800 MG in NORMAL SALINE 250 ML IV SCH (21:06)
[2019-10-22] MEDS ORDERED: VANCOMYCIN HCL 1,000 MG in DEXTROSE 5%-WATER 250 ML IV ONE (02:20)
[2019-10-22] MEDS: OXYCODONE HCL IR 5 MG TABLET PO PRN (02:26)
[2019-10-22] MEDS: IBUPROFEN 800 MG in NORMAL SALINE 250 ML IV SCH (05:20)
[2019-10-22] MEDS: GABAPENTIN 300 MG CAPSULE PO SCH (05:20)
[2019-10-22] MEDS ORDERED: PANTOPRAZOLE SODIUM 40 MG TABLET.DR PO SCH (06:00)
[2019-10-22 06:12] LABS: HEMATOCRIT 36.9 % (36.0-47.0); HEMOGLOBIN 12.6 g/dL (12.0-15.5); MEAN CORPUSCULAR HEMOGLOBIN 32.1 pg (27.0-33.4); MEAN CORPUSCULAR HGB CONC 34.1 g/dL (32.0-36.0); MEAN CORPUSCULAR VOLUME 94 fl (80-97); PLATELET COUNT 297 10^3/uL (150-450); RED BLOOD COUNT 3.92 10^6/uL (3.72-5.28); RED CELL DISTRIBUTION WIDTH 14.5 % (11.5-14.0); WHITE BLOOD COUNT 8.9 10^3/uL (4.0-10.5)
[2019-10-22 06:36] LABS: ANION GAP 7 (5-19); BLOOD UREA NITROGEN 22 mg/dL (7-20); CALCIUM 9.1 mg/dL (8.4-10.2); CARBON DIOXIDE 30 mmol/L (22-30); CHLORIDE 100 mmol/L (98-107); GLUCOSE 108 mg/dL (75-110); POTASSIUM 4.4 mmol/L (3.6-5.0)
--- NOTE | 2019-10-22 07:19 | PDOC DISCHARGE SUMMARY ---
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 Patient is admitted for elective revision right hip arthroplasty. - Additional Information Resuscitation Status: Full Code Discharge Diet: Regular Discharge Activity: Balance Activity w/Rest, No tub bath Referrals: SAHARA FERRARA MD [ACTIVE STAFF] - 10/31/19 11:00 am Home Medications: Albuterol Sulfate [Ventolin Hfa 8 gm Mdi (1 Mdi/ER Disp)] 2 puff IH Q6HP PRN 05/16/18 Tramadol HCl [Ultram] 50 mg PO Q8HP PRN MDD 300 MG (1-2 TAB PER DOSE) 05/16/18 Cyclobenzaprine HCl [Flexeril 10 mg Tablet] 10 mg PO BIDP PRN 07/29/19 Gabapentin [Neurontin] 600 mg PO Q8 07/29/19 Oxycodone HCl/Acetaminophen [Oxycodone-Acetaminophen 10-325] 1 each PO Q8HP PRN 10/18/19 History of Present Illiness History of Present Illness: MICHELE PIERCE is a 69 year old female White female with progressive right hip pain and functional disability secondary to a loose femoral stem. Patient is admitted for elective right hip revision arthroplasty. Hospital Course Hospital Course: Patient is admitted through the operating where she undergoes an uncomplicated right hip revision arthroplasty. She was returned to the floor in satisfactory condition. She ambulates independently without pain and with minimal functional compromise. Physical Exam Vital Signs: Temp Pulse Resp BP Pulse Ox 36.7 C 76 18 138/63 H 98 10/21/19 23:21 10/21/19 23:21 10/21/19 23:21 10/21/19 23:21 10/21/19 23:21 Intake & Output 10/21/19 10/22/19 10/23/19 06:59 06:59 06:59 Intake Total 5999 Output Total 3334 Balance 2665 Weight 60.1 kg General appearance: PRESENT: no acute distress, mild distress Head exam: PRESENT: normocephalic Respiratory exam: PRESENT: unlabored Cardiovascular exam: PRESENT: RRR Pulses: PRESENT: +1 pedal pulses bilateral GI/Abdominal exam: PRESENT: soft Rectal exam: PRESENT: deferred Musculoskeletal exam: PRESENT: other - Leg lengths close to being equal. Distal neurovascular examination is intact. Right hip dressing dry. Neurological exam: PRESENT: alert, awake, oriented to person, oriented to place, oriented to time, oriented to situation. ABSENT: motor sensory deficit Psychiatric exam: PRESENT: appropriate affect, normal mood. ABSENT: homicidal ideation, suicidal ideation Skin exam: PRESENT: dry, intact, warm. ABSENT: cyanosis, rash Results Laboratory Results: WBC 8.9 10^3/uL (4.0-10.5) 10/22/19 05:40 RBC 3.92 10^6/uL (3.72-5.28) 10/22/19 05:40 Hgb 12.6 g/dL (12.0-15.5) 10/22/19 05:40 Hct 36.9 % (36.0-47.0) 10/22/19 05:40 MCV 94 fl (80-97) 10/22/19 05:40 MCH 32.1 pg (27.0-33.4) 10/22/19 05:40 MCHC 34.1 g/dL (32.0-36.0) 10/22/19 05:40 RDW 14.5 % (11.5-14.0) H 10/22/19 05:40 Plt Count 297 10^3/uL (150-450) 10/22/19 05:40 Lymph % (Auto) 37.1 % (13-45) 10/18/19 11:56 [place] % (Auto) 6.1 % (3-13) 10/18/19 11:56 Eos % (Auto) 0.7 % (0-6) 10/18/19 11:56 Baso % (Auto) 1.2 % (0-2) 10/18/19 11:56 Absolute Neuts (auto) 3.3 10^3/uL (1.7-8.2) 10/18/19 11:56 Absolute Lymphs (auto) 2.2 10^3/uL (0.5-4.7) 10/18/19 11:56 Absolute Monos (auto) 0.4 10^3/uL (0.1-1.4) 10/18/19 11:56 Absolute Eos (auto) 0.0 10^3/uL (0.0-0.6) 10/18/19 11:56 Absolute Basos (auto) 0.1 10^3/uL (0.0-0.2) 10/18/19 11:56 Seg Neutrophils % 54.9 % (42-78) 10/18/19 11:56 Sodium 136.9 mmol/L (137-145) L 10/22/19 05:40 Potassium 4.4 mmol/L (3.6-5.0) 10/22/19 05:40 Chloride 100 mmol/L (98-107) 10/22/19 05:40 Carbon Dioxide 30 mmol/L (22-30) 10/22/19 05:40 Anion Gap 7 (5-19) 10/22/19 05:40 BUN 22 mg/dL (7-20) H 10/22/19 05:40 Creatinine 0.81 mg/dL (0.52-1.25) 10/22/19 05:40 Est GFR ( Amer) > 60 (>60) 10/22/19 05:40 Est GFR (Non-Af Amer) Cancelled 10/18/19 11:56 Est GFR (MDRD) Non-Af > 60 (>60) 10/22/19 05:40 Glucose 108 mg/dL (75-110) 10/22/19 05:40 Calcium 9.1 mg/dL (8.4-10.2) 10/22/19 05:40 EGFR Cancelled 10/18/19 11:56 Urine Color YELLOW 10/18/19 11:45 Urine Appearance CLEAR 10/18/19 11:45 Urine pH 7.0 (5.0-9.0) 10/18/19 11:45 Ur Specific [place] 1.011 10/18/19 11:45 Urine Protein NEGATIVE mg/dL (NEGATIVE) 10/18/19 11:45 Urine Glucose (UA) NEGATIVE mg/dL (NEGATIVE) 10/18/19 11:45 Urine Ketones NEGATIVE mg/dL (NEGATIVE) 10/18/19 11:45 Urine Blood NEGATIVE (NEGATIVE) 10/18/19 11:45 Urine Nitrite NEGATIVE (NEGATIVE) 10/18/19 11:45 Urine Bilirubin NEGATIVE (NEGATIVE) 10/18/19 11:45 Urine Urobilinogen NEGATIVE mg/dL (<2.0) 10/18/19 11:45 Ur Leukocyte Esterase NEGATIVE (NEGATIVE) 10/18/19 11:45 Urine WBC (Auto) 1 /HPF 10/18/19 11:45 Urine RBC (Auto) 3 /HPF 10/18/19 11:45 Urine Bacteria (Auto) TRACE /HPF 10/18/19 11:45 Squamous Epi Cells Auto 3 /HPF 10/18/19 11:45 Urine Mucus (Auto) RARE /LPF 10/18/19 11:45 Urine Ascorbic Acid NEGATIVE (NEGATIVE) 10/18/19 11:45 COVID-19 Source NASOPHARYNGEAL 10/18/19 11:53 COVID-19 ([place]) NOT DETECTED 10/18/19 11:53 Blood Type B POSITIVE 10/21/19 09:52 Antibody Screen NEGATIVE 10/21/19 09:52 Impressions: Chest X-Ray 10/18/19 12:07 IMPRESSION: COPD. No acute findings in the chest. Hip/Pelvis X-Ray 10/21/19 14:22 IMPRESSION: Status post right DONNA with expected immediate postoperative findings. Plan Plan of Treatment: Patient to be discharged home with home health services and DME on a weightbearing as tolerated basis. Follow-up with Dr. Ferrara and [facility] for surgery in 2 weeks for wound inspection. Stroke Is this a Stroke Patient?: No Stroke Pt being discharged on Anti-thrombolytic therapy?: Yes Acute Heart Failure - Is this a Heart Failure Patient?: No
[2019-10-22 09:31] VITALS: BP 144/74
[2019-10-22] MEDS: SENNOSIDES/DOCUSATE 8.6-50 MG 1 EACH TABLET PO SCH (09:52)
[2019-10-22] MEDS: OXYCODONE HCL SR 10 MG TABLET PO SCH (09:52)
[2019-10-22] MEDS ORDERED: ASPIRIN 81 MG TABLET, ENT COATED PO SCH (10:00)
[2019-10-22] MEDS ORDERED: PRENATAL VITAMIN W DHA CAPSULE PO SCH (10:00)
== END 2019-10-22 10:05 | disposition home health service (06) | DRG 466 ==
LOC: INOR 09:12 → 4S 15:49
PROVIDERS: ADMIT Orthopaedic Surgery; ATTEND Orthopaedic Surgery
PROC: 0SPR0JZ Removal of Synthetic Substitute from Right Hip Joint, Femoral Surface, Open Approach (ICD-10-PCS; 2019-10-21)
PROC: 0SRR0JZ Replacement of Right Hip Joint, Femoral Surface with Synthetic Substitute, Open Approach (ICD-10-PCS; principal; 2019-10-21 10:30)
DX: T84.030A Mechanical loosening of internal right hip prosthetic joint, initial encounter (principal); S72.091A Other fracture of head and neck of right femur, initial encounter for closed fracture; Y83.1 Surgical operation with implant of artificial internal device as the cause of abnormal reaction of the patient, or of later complication, without mention of misadventure at the time of the procedure; M25.551 Pain in right hip; Z96.641 Presence of right artificial hip joint; J44.9 Chronic obstructive pulmonary disease, unspecified; M79.7 Fibromyalgia; M81.0 Age-related osteoporosis without current pathological fracture; Z79.899 Other long term (current) drug therapy
CPT/HCPCS: 01215; 36415; 71046; 80048; 81001; 85025; 85027; 86850; 86900; 86901; 87070; 87075; 87205; 87635; 93005; 93010; 94799; C9290; J0171; J0690; J1100; J1741; J2250; J2405; J2704; J3010; J3370; J3490; J7050; J7060